=== PATIENT | male | born 1970 | race Caucasian/White ===

== ENCOUNTER 2019-10-19 08:04 | Emergency (ER) | payer OTHER, SELFPAY ==
--- NOTE | ~2019-10-19 | XR_ITS ---
EXAMINATION: XR chest 2V DATE: 10/19/2019 08:42 INDICATION: Difficulty breathing. Right lung pain. Smoker. TECHNIQUE: frontal and lateral views of the chest were obtained. COMPARISON: Chest radiograph dated 12/28/2009 FINDINGS: Hyperexpansion of lungs with flattening of the diaphragm suggestive but not diagnostic of COPD. Focal airspace opacity medial right apex. Remainder of the lungs are clear with no pulmonary edema, pleura l effusion or pneumothorax. The cardiomediastinal silhouette is normal. Visualized bones and soft tis sues are unremarkable. IMPRESSION: 1. Focal airspace opacity at the medial right apex could represent pneumonia, malignancy or atelectas is. Correlate clinically and consider chest CT for further evaluation. 2. Hyperexpansion of the lungs suggestive but not diagnostic of COPD. Reviewed, dictated and finalized at location A. MAKER IMPRESSION: 1. Focal airspace opacity at the medial right apex could represent pneumonia, m alignancy or atelectasis. Correlate clinically and consider chest CT for furthe r evaluation. 2. Hyperexpansion of the lungs suggestive but not diagnostic of COPD.
[2019-10-19 08:17] VITALS: BP 148/74; PULSE 84; RESP 16; TEMP 36.8; O2SAT 97
--- NOTE | 2019-10-19 08:19 | ED.GENADULT ---
HPI - General Adult General Chief complaint: Upper Respiratory Infection Stated complaint: Chest pain/Muscle fatigue Time Seen by Provider: 10/19/19 08:19 Source: patient Mode of arrival: ambulatory Limitations: no limitations History of Present Illness HPI narrative: 49-year-old male [facility] of cough and shortness of breath. Patient states that last weekend he was working with some paint thinner and was not really in a well ventilated area and denies using any type of respirator at that time. Patient states that on Monday he noticed some back pain and some pain with inspiration. Patient states that his symptoms got increasingly worse until he started having some midsternal chest pain, shortness of breath, and pain with inspiration. Denies any fevers or cold symptoms. Denies any sore throat, abdominal pain, nausea, vomiting or diarrhea. Patient states that he does smoke a pack a day. Patient states that he did get a flu shot this year. Patient states that his symptoms are getting better but he wanted to come in and get checked out today. Patient states he does feel little short of breath still and continues to have a little bit of a cough but no chest pain at this time. Related Data Home Medications Medication Instructions Recorded Confirmed lisdexamfetamine [Vyvanse] mg 10/19/19 lisdexamfetamine [Vyvanse] mg 10/19/19 sildenafil 10/19/19 Allergies Allergy/AdvReac Type Severity Reaction Status Date / Time erythromycin base Allergy Unknown Verified 03/23/19 10:20 Review of Systems Review of Systems: Narrative: CONSTITUTIONAL: Denies fever, chills, or sweats. EYES: Denies visual changes, redness, or discharge. ENT: Denies rhinorrhea, congestion, sore throat, or otalgia. CARDIOVASCULAR: Denies chest pain, palpitations, or edema. RESPIRATORY: Positive cough with dyspnea. GASTROINTESTINAL: Denies abdominal pain, nausea, vomiting, or diarrhea. GENITOURINARY: Denies dysuria or hematuria. SKIN: Denies rash or itching. MUSCULOSKELETAL: Denies back pain, joint pain, or myalgia. NEUROLOGIC: Denies headache, numbness, or weakness. PSYCHIATRIC: Denies anxiety or depression. [facility] Past Medical History Medical History (Updated 10/19/19 @ 08:54 by EHSAN Castillo) ADD (attention deficit disorder) Anxiety Hypercholesterolemia Kidney stones Liver disease Pneumonia Surgical History Surgical History (Updated 10/19/19 @ 08:36 by EHSAN Castillo) History of tonsillectomy Social History Social History (Updated 10/19/19 @ 08:35 by EHSAN Castillo) Smoking packs per day: 1 Smoking cigarettes per day: 20.0 Years smoked: 20 Smoking pack-years: 20.00 Comments At the time of my signature I agree with nursing past medical history, surgical, social, and family history. There is no relevant family history pertinent to the presenting complaint. Exam Narrative: Exam Narrative: GENERAL: Well-appearing, well-nourished, and in no acute distress. HEAD: Normocephalic, atraumatic. No tenderness noted to frontal and maxillary sinuses on palpation. EYES: PERRLA and EOMI. ENT: Nares clear, no rhinorrhea or epistaxis. Mucous membranes moist. Posterior pharynx with no erythema, tonsillectomy, exudates or lesions present. Bilateral TMs are clear no erythema or foreign bodies in the canal. NECK: Supple. No lymphadenopathy CHEST: Patient does have some decreased lung sounds noted to bilateral lower lobes however the upper lobes are clear on auscultation.. No respiratory distress. HEART: Regular rate and rhythm. No murmur heard. Normal peripheral pulses. ABDOMEN: Soft, nontender, nondistended, normal active bowel sounds. EXTREMITIES: Normal range of motion. No edema. Clubbing noted to fingers. SKIN: Warm, dry, no rash. NEURO: No focal deficits. Alert and oriented x3. Course Reevaluation(s) Reevaluation #1: Reevaluated patient after his x-ray was completed. Dinora
== END 2019-10-19 09:07 | disposition home or self-care (01) ==
PROVIDERS: Emergency Provider Nurse Practitioner Family; PCP Family Medicine Adolescent Medicine
DX: J06.9 Acute upper respiratory infection, unspecified (principal); R06.02 Shortness of breath; F17.210 Nicotine dependence, cigarettes, uncomplicated; F90.0 Attention-deficit hyperactivity disorder, predominantly inattentive type; E78.00 Pure hypercholesterolemia, unspecified
CPT/HCPCS: 71046; 99213; G0463

== ENCOUNTER 2019-10-25 15:50 | Outpatient (CLI) | payer OTHER, SELFPAY ==
--- NOTE | ~2019-10-25 | CT_ITS ---
EXAMINATION: CT chest wo con DATE: 10/25/2019 16:15 INDICATION: Focal consolidation right upper lobe seen on chest x-ray. TECHNIQUE: Computed tomography (CT) of the chest was performed without intravenous contrast. The dose -length product was 206.03 mGy-cm. Automated exposure control and iterative reconstruction technique were employed. COMPARISON: Chest x-ray dated 10/19/2019 FINDINGS: There is an enlarged precarinal lymph node measuring 10 mm short axis. There are additional smaller mediastinal lymph nodes. No significant pleural or pericardial effusion. Heart size is abhijit l. There is abnormal focal right peritracheal soft tissue extending into the mediastinum. There are a ir bronchograms and associated calcifications. There are shotty axillary lymph nodes. There is emphys nick. The right upper lobe soft tissue measures 5.3 cm craniocaudal x3.3 cm transverse x2.3 cm AP. The soft tissue abuts the esophagus. No pneumothorax. Nonobstructing right renal stones. Otherwise, the upper abdomen is unremarkable. IMPRESSION: 1. Abnormal right upper lobe paramediastinal soft tissue with possible invasion of the mediastinum. T here are peripheral air bronchograms and a few associated punctate calcifications. This may represent infectious/inflammatory process although malignancy is not excluded. 2: Mediastinal lymphadenopathy which may be reactive or metastatic disease. 3: Nonobstructing right nephrolithiasis. Reviewed, dictated and finalized at location A. ON SEWING MACHINE OPERATOR IMPRESSION: 1. Abnormal right upper lobe paramediastinal soft tissue with possible invasion of the mediastinum. There are peripheral air bronchograms and a few associated punctate calcifications. This may represent infectious/inflammatory process al though malignancy is not excluded. 2: Mediastinal lymphadenopathy which may be reactive or metastatic disease. 3: Nonobstructing right nephrolithiasis.
== END 2019-10-25 15:51 | disposition home or self-care (01) ==
LOC: ANHIMG 15:53
PROVIDERS: PCP Family Medicine Adolescent Medicine; Visit Provider Family Medicine Adolescent Medicine
DX: R91.8 Other nonspecific abnormal finding of lung field (principal); R59.0 Localized enlarged lymph nodes; N20.0 Calculus of kidney
CPT/HCPCS: 71250

== ENCOUNTER 2019-11-12 06:54 | Outpatient (CLI) | payer OTHER, SELFPAY ==
--- NOTE | ~2019-11-12 | XR_ITS ---
EXAMINATION: XR chest 2V 11/12/2019 07:21 INDICATION: Pneumonia. PROCEDURE: 2 view chest COMPARISON: Comparison to multiple prior studies sequentially, with oldest reviewed study dated 10/14. FINDINGS: The lungs are clear. The cardiomediastinal silhouette is within normal limits. There are no pleural effusions. There is no pneumothorax suspected. IMPRESSION: 1: NO ACUTE CARDIOPULMONARY DISEASE. Reviewed, dictated and finalized at location A.
== END 2019-11-12 06:55 | disposition home or self-care (01) ==
PROVIDERS: PCP Family Medicine Adolescent Medicine; Visit Provider Family Medicine Adolescent Medicine
DX: J18.9 Pneumonia, unspecified organism (principal)
CPT/HCPCS: 71046

== ENCOUNTER → 2020-08-18 09:37 | Outpatient (CLI) | payer OTHER, SELFPAY ==
--- NOTE | ~2020-08-18 | XR_ITS ---
EXAMINATION: XR knee RT min 4V DATE: 08/18/2020 09:56 INDICATION: Right knee pain and swelling. TECHNIQUE: 4 views of right knee were obtained. COMPARISON: Right knee radiographs 10/26/2010 FINDINGS: Bone alignment is normal. No fracture. There is mild osteoarthritis of patellofemoral madelaine rtment characterized by tiny marginal osteophytes. No knee joint effusion. IMPRESSION: 1. Mild right knee osteoarthritis. Reviewed, dictated and finalized at location A. R MAKER
== END ==
PROVIDERS: PCP Family Medicine Adolescent Medicine; Visit Provider Family Medicine Adolescent Medicine
DX: M17.11 Unilateral primary osteoarthritis, right knee (principal)
CPT/HCPCS: 73564

== ENCOUNTER → 2020-08-25 14:57 | Outpatient (CLI) | payer OTHER, SELFPAY ==
--- NOTE | ~2020-08-25 | MR_ITS ---
EXAMINATION: MR knee RT wo con DATE: 08/25/2020 15:37 INDICATION: Right knee pain. TECHNIQUE: Magnetic resonance imaging (MRI) of the right knee was performed without intravenous contr ast. Sequences included axial PD-weighted FS FSE, coronal PD-weighted FSE and PD-weighted FS FSE, sag ittal PD-weighted FSE, and sagittal T2-weighted FS FSE. COMPARISON: Right knee radiographs 08/18/2020, MRI 01/07/2011 FINDINGS: Medial compartment: There is a complex tear of body and posterior horn of medial meniscus. There is shallow partial-thick ness cartilage loss of tibial condyle anteromedially with mild subchondral edema-like marrow signal i ntensity. There is shallow partial-thickness cartilage loss of femoral condyle anteromedially with mi ld subchondral edema-like marrow signal intensity. Lateral compartment: The lateral meniscus is normal. The lateral compartment cartilage is normal. Patellofemoral compartment: There is shallow partial-thickness cartilage loss of patellar lateral facet. There is cartilage surfa ce irregularity of trochlea. Ligaments and tendons: The anterior and posterior cruciate ligament are normal. Medial collateral ligament and lateral colla teral ligament complex are intact. There is mild patellar tendinopathy. Fluid: There is a small knee joint effusion. There is a 2.9 x 1.2 x 1.0 cm multiloculated ganglion cyst cristal g the popliteus tendon. IMPRESSION: 1. Mild chondrosis of medial and patellofemoral compartments. 2. Tear of medial meniscus. 3. Ganglion cyst along the popliteus tendon. 4. Small knee joint effusion. Reviewed, dictated and finalized at location A. CONTROLLER
== END ==
PROVIDERS: PCP Family Medicine Adolescent Medicine; Visit Provider Family Medicine Adolescent Medicine
DX: M25.461 Effusion, right knee (principal); S83.241A Other tear of medial meniscus, current injury, right knee, initial encounter; X58.XXXA Exposure to other specified factors, initial encounter
CPT/HCPCS: 73721

== ENCOUNTER 2021-05-12 19:09 | Emergency (ER) | payer OTHER, SELFPAY ==
--- NOTE | ~2021-05-12 | XR_ITS ---
EXAMINATION: XR chest 2V 05/12/2021 19:45 INDICATION: Chest congestion. Dyspnea PROCEDURE: 2 view chest COMPARISON: 08/05/2000 FINDINGS: The lungs are clear. The cardiomediastinal silhouette is within normal limits. There are no pleural effusions. There is no pneumothorax suspected. IMPRESSION: 1: NO ACUTE CARDIOPULMONARY DISEASE. Reviewed, dictated and finalized at location A.
--- NOTE | 2021-05-12 20:06 | ED.URI ---
HPI - URI/Sore Throat General Chief Complaint: Upper Respiratory Infection Stated Complaint: chest pain Time Seen by Provider: 05/12/21 20:07 Source: patient, RN notes reviewed and old records reviewed Mode of arrival: ambulatory Limitations: no limitations History of Present Illness HPI Narrative: 50 year old male who presents to [facility] care with complaints of intermittent chest pain today since 1100. Patient denies any chest pain at the present time, states he just got off work prior to coming to clinic. Patient states that he had COVID in April and he had pneumonia at that time and had been doing pretty good. Patient denies any acute cough or any shortness of breath, states doesn't hurt to take a deep breath at this time.Patient continues to smoke 1 pack of cigarettes daily, has smoked for 20 years. He states when he had the pain in his chest it was in his sternal area, didn't go anywhere else, was not nauseated or short of breath, he denies any recent fevers, chill or sweats or any sinus congestion or drainage. MD elicited complaint: cough and other (chest) Related Data Home Medications Medication Instructions Recorded Confirmed alprazolam 05/12/21 dextroamphetamine-amphetamine 05/12/21 Allergies Allergy/AdvReac Type Severity Reaction Status Date / Time erythromycin base Allergy Unknown Other Verified 05/12/21 19:15 Review of Systems Review of Systems: CONSTITUTIONAL: Denies fever, chills, or sweats. EYES: Denies visual changes, redness, or discharge. ENT: Denies rhinorrhea, congestion, sore throat, or otalgia. CARDIOVASCULAR: Denies chest pain, palpitations, or edema. RESPIRATORY: Denies cough or dyspnea. GASTROINTESTINAL: Denies abdominal pain, nausea, vomiting, or diarrhea. GENITOURINARY: Denies dysuria or hematuria. SKIN: Denies rash or itching. MUSCULOSKELETAL: Denies back pain, joint pain, or myalgia. NEUROLOGIC: Denies headache, numbness, or weakness. PSYCHIATRIC: Positive anxiety or depression. All systems reviewed & are unremarkable except as noted in HPI and below PMFSH Past Medical History Medical History (Updated 05/13/21 @ 00:01 by Chester Mckee) ADD (attention deficit disorder) Anxiety Hypercholesterolemia Kidney stones Liver disease Pneumonia Surgical History Surgical History (Updated 10/19/19 @ 08:36 by EHSAN Castillo) History of tonsillectomy Social History Social History (Updated 10/19/19 @ 08:35 by EHSAN Castillo) Smoking packs per day: 1 Smoking cigarettes per day: 20.0 Years smoked: 20 Smoking pack-years: 20.00 Exam Narrative: GENERAL: Well-appearing, well-nourished, and in no acute distress, no pain at this time HEAD: Normocephalic, atraumatic. EYES: PERRLA and EOMI. ENT: Nares clear, no rhinorrhea or epistaxis. Mucous membranes moist.TM's abhijit with good light reflex, throat pink with no lesions or exudates, tonsils absent NECK: Supple.no lymphadenopathy CHEST: Clear decreased to auscultation. No respiratory distress.SAO2 99% on room air HEART: Regular rate and rhythm. No murmur heard. Normal peripheral pulses. ABDOMEN: Soft, nontender, nondistended, normal active bowel sounds. EXTREMITIES: Normal range of motion. No edema. SKIN: Warm, dry, no rash. NEURO: No focal deficits. Alert and oriented x3. Course Vital Signs Vital signs: Vital Signs Temperature 36.4 C L 05/12/21 20:35 Pulse Rate 85 05/12/21 20:35 Respiratory Rate 16 05/12/21 20:35 Blood Pressure 133/73 05/12/21 20:35 Pulse Oximetry 99 05/12/21 20:35 Temperature 36.4 C L 05/12/21 20:35 Pulse Rate 85 05/12/21 20:35 Respiratory Rate 16 05/12/21 20:35 Blood Pressure 133/73 05/12/21 20:35 Pulse Oximetry 99 05/12/21 20:35 MDM - URI/Sore Throat Differential Diagnosis Differential diagnosis: Likely upper respiratory infection, bronchitis and other (Costochondritis, atypical chest pain, muscle strain) Medical Records Attestation: I reviewed the p
[2021-05-12 20:35] VITALS: BP 133/73; PULSE 85; RESP 16; TEMP 36.4; O2SAT 99
== END 2021-05-12 20:55 | disposition home or self-care (01) ==
PROVIDERS: Emergency Provider Registered Nurse; PCP Family Medicine Adolescent Medicine
DX: M94.0 Chondrocostal junction syndrome [Tietze] (principal); F41.9 Anxiety disorder, unspecified; F17.210 Nicotine dependence, cigarettes, uncomplicated
CPT/HCPCS: 71046; 99213; G0463

== ENCOUNTER 2022-12-17 08:46 | Emergency (ER) | payer OTHER, SELFPAY ==
--- NOTE | ~2022-12-17 | XR_ITS ---
EXAMINATION: XR hand LT min 3V INDICATION: Left hand pain TECHNIQUE: Three views of the left hand are obtained. COMPARISON: None available FINDINGS: There is no fracture. The soft tissues are unremarkable. There is mild osteoarthritis of mu ltiple interphalangeal joints. IMPRESSION: 1. No acute osseous abnormality. Reviewed, dictated and finalized at location A.
[2022-12-17 09:02] VITALS: BP 145/84; PULSE 92; RESP 12; TEMP 36.4; O2SAT 97
--- NOTE | 2022-12-17 09:16 | ED.UPPEXIN ---
HPI - Extremity Injury (Upper) General Chief Complaint: Extremity Injury, Upper Stated Complaint: Left Hand Paiin Source: patient and RN notes reviewed History of Present Illness HPI narrative: 32-year-old male presents to urgent care with complaints left thumb pain. Patient states 8 days ago he was golfing when he felt a pain and pop in his left thumb. 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 Patient states he feels like his thumb was dislocated. Denies any numbness or tingling. patient denies any injury to this joint in the past. Patient takes ibuprofen when needed. Some parts of this dictation were generated by voice recognition software and may contain typographical and/or grammatical inaccuracies. Related Data Allergies Allergy/AdvReac Type Severity Reaction Status Date / Time erythromycin base Allergy Unknown Other Verified 12/17/22 09:19 sertraline AdvReac Severe Depression Verified 12/17/22 09:19 Review of Systems Review of Systems: Pertinent positives and pertinent negatives per HPI. [facility] Past Medical History Medical History (Updated 12/17/22 @ 09:47 by Mar Mary APRN) ADD (attention deficit disorder) Anxiety Hypercholesterolemia Kidney stones Liver disease Pneumonia Surgical History Surgical History (Updated 11/18/22 @ 06:53 by Jake Nelson MD) History of tonsillectomy Hx of right knee surgery x3 Family History Family History Grandparent Acute myocardial infarction Other Breast cancer Mother Diabetes mellitus Hypertension Father Hypertension Social History Social History Smoking packs per day: 1 Smoking cigarettes per day: 20.0 Years smoked: 20 Smoking pack-years: 20.00 Smoking status: Current every day smoker Tobacco type: cigarettes Second hand tobacco smoke exposure: Yes Drinks per week: 6 Substance use: never Substance use type: does not use Living arrangements: alone Occupation/Education: occupation Gender identity (if verbalized by the patient): Male Sexual Orientation (if Verbalized by the Patient): Straight or Heterosexual Spiritual care concerns: No Agree to blood products: Yes Comments At the time of my signature, I reviewed and agree with the nursing past medical, surgical, social, and family history. There is no relevant family history pertinent to the patient complaint. Exam Narrative: GENERAL: This is a well-nourished, well-developed patient, in no apparent distress. HEAD: normocephalic, atraumatic. EYES: Sclera clear/white. Vision is grossly intact. EARS: External ears normal, auditory canals clear and without drainage. Hearing grossly intact. NOSE: External nose normal with no obvious nasal discharge, nares without redness, no rhinorrhea. THROAT: Mucous membranes moist, posterior pharynx clear. NECK: Neck supple, non-tender without lymphadenopathy, masses or thyromegaly. CARDIOVASCULAR: Regular rate RESPIRATORY: No respiratory distress SKIN: warm, intact with no suspicious lesions or rash, good texture and turgor. NEURO: awake, alert, and oriented to person, place and time. There were no obvious focal neurologic abnormalities. EXTREMITIES: Joint laxity and slight swelling noted in left thumb's MCP joint. Course Course Level of Care: Express Care Visit Vital Signs Vital signs: Vital Signs Temperature 97.6 F 12/17/22 09:02 Pulse Rate 92 12/17/22 09:02 Respiratory Rate 12 12/17/22 09:02 Blood Pressure 145/84 H 12/17/22 09:02 Pulse Oximetry 97 12/17/22 09:02 Oxygen Delivery Room Air 12/17/22 09:02 Temperature 97.6 F 12/17/22 09:02 Pulse Rate 92 12/17/22 09:02 Respiratory Rate 12 12/17/22 09:02 Blood Pressure 145/84 H 12/17/22 09:02 Pulse Oximetry 97 12/17/22 09:02 Oxygen Delivery Room Air 12/17/22 09:02
== END 2022-12-17 09:58 | disposition home or self-care (01) ==
PROVIDERS: Emergency Provider Nurse Practitioner Family; PCP Family Medicine Adolescent Medicine
DX: S63.642A Sprain of metacarpophalangeal joint of left thumb, initial encounter (principal); F17.210 Nicotine dependence, cigarettes, uncomplicated; X50.0XXA Overexertion from strenuous movement or load, initial encounter; Y93.53 Activity, golf
CPT/HCPCS: 73130; 99213; G0463

== ENCOUNTER 2022-12-22 02:22 | Day surgery (SDC) | payer OTHER, SELFPAY ==
[2022-12-21 08:19] VITALS: BMI 22.1
--- NOTE | 2022-12-21 08:28 | SUR.PREOP ---
Report to the Outpatient Waiting Room, entrance under the green pavilion located off [facility], at time 0600 on date 12/22/22. Planned Procedure Time: 0730. Time changes happen often and if your time is changed the preop area will call you the afternoon before. - You and your visitor will be asked to self-screen and do not enter if you have any COVID symptoms. - A mask is optional within the hospital at this time. Patients may have clear liquids (water, carbonated beverages, clear teas, apple juice) until 3 hours prior to surgery with a maximum of 20 ounces. - No food from midnight until time of surgery - Infants may have breast milk until 4 hours before surgery, formula 6 hours prior to surgery. - Children will be allowed to drink immediately following surgery. If applicable, please bring a bottle or sippy cup to assist with drinking. Juice, water, soda, and popsicles are readily available. For infants on formula, please bring formula the day of surgery. Pacifiers are allowed. Take the following medications with a SIP of water the morning of surgery: ___holding morning meds per patient___ DO NOT STOP ANY OF YOUR OTHER PRESCRIPTION MEDICATIONS PRIOR TO SURGERY ?EXCEPT THE FOLLOWING Medications to discontinue per physician Date to take last dose Please no make-up, nail frisian, hairspray, perfume, deodorant, or body powder the day of surgery. No jewelry (including any body piercings) or valuables the day of surgery, leave them at home. Please take a shower or bath the night before, or the morning of, surgery with an antibacterial soap. Wear comfortable, loose fitting clothing. Children are encouraged to wear pajamas. - Jewelry must be removed prior to entering the operating room. Rings and piercings that are not removed may be cut off. - The hospital will not accept responsibility for valuables. - Please leave all valuables, including medications, at home the day of surgery. If you are going home after surgery, a licensed driver starting gate must drive you home. - NO public transportation without another adult if you receive anesthesia. - We recommend that an adult stay with you for 24 hours following discharge. - We also recommend that you do not drive, make important decision, drink alcoholic beverages, or take any drugs that were not prescribed by your health care provider for at least 24 hours after your discharge time. For Pediatric surgeries, we recommend two adults accompany the child home. Follow any additional instructions given to you from your surgeon. If you or anyone in your household have experienced Covid symptoms in the past week, please notify your surgeon or the nurse liaison at the phone number below for possible testing. Telephone instructions given to __patient__and asked if any additional questions and then verbalized understanding. Patient advised to call surgeon office or pre surgery nurse liaison [phone] if any additional questions.
--- NOTE | ~2022-12-22 | XR_ITS ---
EXAMINATION: XR surgery orthopedic DATE: 12/22/2022 10:03 INDICATION: Left hand first metacarpophalangeal joint repair. TECHNIQUE: 2 fluoroscopic images of the thumb of the left hand were obtained during procedure perform ed by Dr. Magallanes. Radiologist was not present for the imaging or procedure. The amount of fluoroscopy time used during this procedure was 0.9 minutes. COMPARISON: 12/17/2022 FINDINGS: Image demonstrates what appear to be placement of a suture anchor tracks at the base of the first pro ximal phalanx and adjacent head of the first metacarpal likely for ligament reconstruction. Alignment appears essentially anatomic with reduction of the prior mild palmar/ulnar subluxation of the metaca rpophalangeal joint. No fractures identified. Joint spaces appear normal. IMPRESSION: 1. Fluoroscopy utilized during likely ligamentous reconstruction at the left first metacarpophalangea l joint. See procedure note for further detail. Reviewed, dictated and finalized at location A. IMPRESSION: 1. Fluoroscopy utilized during likely ligamentous reconstruction at the left fi rst metacarpophalangeal joint. See procedure note for further detail.
--- NOTE | 2022-12-22 07:23 | WPDHPUPDATE1 ---
History and Physical Update Update Date/Time: 12/22/22 07:23 History and Physical has been reviewed, including an updated exam of the patient. There are NO changes in the patient's condition. Risks, benefits, and alternatives have been discussed and questions answered. Patient agrees to proceed with procedure. All references to the physical findings reported in the H&P should indicate radial MPJ laxity and slight adduction of the proximal phalanx at rest.
[2022-12-22 07:48] VITALS: BP 125/85; PULSE 73; RESP 18; TEMP 36.2; O2SAT 100
--- NOTE | 2022-12-22 07:59 | ECG_ITS ---
Measurements Intervals [place] Rate: 70 P: 59 WI: 142 QRS: 73 QRSD: 101 T: 66 QT: 383 QTc: 414 Interpretive Statements SINUS RHYTHM NO PREVIOUS ECG AVAILABLE FOR COMPARISON Electronically Signed On 12-22-2022 18:28:06 CDT by Arnel Ruiz M.D.
--- NOTE | 2022-12-22 07:59 | WPDANESEPPF ---
Anes - Initial Pre Proc Eval Procedure: Operation Date: 12/22/22 07:30 Proposed Procedures p Repair Left First Metacarpophalangeal Joint Radial Collateral Ligament with Arthrex Internal Brace - Neymar Magallanes MD Date/Time: 12/22/22 07:59 Surgeon: Neymar Magallanes MD Pre Op Diagnosis: rupture radial collateral ligament left 1st joint Patient Data Age: 52 Gender: M Height: 1.75 m Weight: 66.4 kg Last Vital Signs Temp 36.2 C L 12/22/22 07:48 Pulse 73 12/22/22 07:48 Resp 18 12/22/22 07:48 BP 125/85 12/22/22 07:48 Pulse Ox 100 12/22/22 07:48 O2 Del Method Room Air 12/22/22 07:48 Allergies Allergy/AdvReac Type Severity Reaction Status Date / Time erythromycin base Allergy Unknown Other Verified 12/17/22 09:19 sertraline AdvReac Severe Depression Verified 12/17/22 09:19 Home Medications Medication Instructions Recorded Confirmed Type alprazolam 2 mg tablet 2 mg PO TID #90 tabs 11/25/22 12/22/22 Rx dextroamphetamine-amphetamine 30 30 mg PO BID #60 tabs 12/09/22 12/22/22 Rx mg tablet quetiapine 50 mg tablet 50 mg PO QHS #30 tabs 12/09/22 12/22/22 Rx Patient hx anesthesia problems: none Family hx anesthesia problems: none Results Review: All pre-operative results and documents have been reviewed as part of the pre-operative evaluation. [facility] Past Medical History Medical History ADD (attention deficit disorder) Anxiety Hypercholesterolemia Kidney stones Liver disease Pneumonia Surgical History Surgical History History of tonsillectomy Hx of right knee surgery x3 Family History Family History Grandparent Acute myocardial infarction Other Breast cancer Mother Diabetes mellitus Hypertension Father Hypertension Social History Social History Smoking packs per day: 1 Smoking cigarettes per day: 20.0 Years smoked: 30 Smoking pack-years: 30.00 Smoking status: Current every day smoker Tobacco type: cigarettes Second hand tobacco smoke exposure: Yes Drinks per week: 3 Substance use: never Substance use type: marijuana Other substance usage details: marijuana at night for sleep Living arrangements: alone Occupation/Education: occupation Gender identity (if verbalized by the patient): Male Sexual Orientation (if Verbalized by the Patient): Straight or Heterosexual Spiritual care concerns: No Agree to blood products: Yes Anes - Eval Final PreProcedure Day of Procedure 12/22/22 07:59 Patient weight: normal Heart: regular rate and rhythm Lungs: clear to auscultation Airway: Mallampati scale class II Neurological: alert and oriented Last oral intake: >/= 8 hours ASA classification: II Emergent: no Anesthetic plan: proceed Anesthesia type and monitoring: general LMA and standard monitoring Results Review: All pre-operative results and documents have been reviewed as part of the pre-operative evaluation. Informed Consent: The patient's anesthetic plan and its attendant risks and benefits were discussed with the patient/family/POA. Questions were solicited and answers provided to the satisfaction of the patient/family/POA.
[2022-12-22] MEDS: LACTATED RINGERS 1,000 ML 30 ML IV CONT (08:12)
[2022-12-22] MEDS: LIDO 1%/EPINEPHRINE 1:100,000 50 ML VIAL 7 ML INFILTRATE (08:51)
[2022-12-22] MEDS: BUPivacaine HCL 0.25% PF 30 ML VIAL 6 ML INFILTRATE (08:52)
[2022-12-22 10:13] VITALS: BP 120/81; PULSE 87; RESP 22; TEMP 36.6; O2SAT 99
--- NOTE | 2022-12-22 10:22 | P.OP_ITS ---
Procedure Note - Detailed Date of Procedure 12/22/22 Pre-op Diagnosis rupture radial collateral ligament left 1st joint Post-op Diagnosis Same Procedure Performed Primary repair of the radial collateral ligament of the left 1st metacarpop halangeal joint with Arthrex internal and brace Surgeon Neymar Magallanes MD Anesthesia General Findings Rupture of the insertion of the radial collateral ligament of the left 1st metacarpophalangeal joint Description of Procedure The patient was in a splint in the holding area. The nearby area was marked for correct site. The patient was then taken to the operating room where he was placed supine on the operating table. He was given general anesthesia. The left upper extremity was prepped draped in usual fashion. Time-out was held and confirmed with everyone present. The site was marked for the incision and locally infiltrated with 1% lidocaine with epinephrine. This was shortly followed by several cc of 0.25% Sensorcaine. Extremity was exsanguinated with an Esmarch and the tourniquet inflated to 250 mmHg. The incision was made as marked through the skin revealing a couple of cutaneous nerves that were protected throughout the procedure. The abductor fascia was incised parallel to the extensor pollicis brevis. This was retracted palmar word. The joint site was carefully examined and the distal ends of the 2 collateral ligaments were identified proximally displaced. The ruptured had occurred at the insertion. Joint was visualized. There was no significant arthritis. The radial base of the distal phalanx was exposed and Arthrex internal brace system was utilized for repair. Drill site was identified with images taken after placement of the guidewire. Site was acceptable and the Arthrex drill with guide was brought and hole made for swivel lock. Construct with suture tape and suture was placed at that point. The collateral ligament was repaired with the supplied FiberWire directing the end of that ligament to drill site. This was tied down. The site for the proximal placement of the suture tape was drilled. Site was confirmed placement guidewire using FluoroScan. SwiveLock fenestration was made. The swiveLock placed over the suture tape and inset. The metacarpophalangeal joint was flexed approximately 30? and well Ulnarly abducted as was set. This produced a very stable construct with what appeared to be useful passive range of motion. Additional sutures were placed to reattach the accessory collateral ligament. Abductor aponeurosis was repaired. Tourniquet was released. The skin was closed with the running 5 0 nylon. Dorsal 3 in Orthoplast splint test crossing wrist was applied patient was discharged from the operating room stable condition. He is being discharged home with a prescription for hydrocodone 10 Estimated Blood Loss 10 Tourniquet Time 90 Drains No Packing No Pathology None sent Complications No immediate complications Condition Stable Disposition PACU
[2022-12-22 10:25] VITALS: BP 100/60; PULSE 74; RESP 20; O2SAT 98
[2022-12-22 10:40] VITALS: BP 95/61; PULSE 77; RESP 14; O2SAT 98
[2022-12-22 10:50] VITALS: BP 128/76; PULSE 67; RESP 16
[2022-12-22 11:20] VITALS: BP 147/91; PULSE 61; RESP 16
--- NOTE | 2022-12-22 11:25 | SUR.PHASEII ---
this nurse called dr glez to inform her about pt blood loss and plan to order a CBC and continue to monitor.
--- NOTE | 2022-12-22 11:51 | SUR.PHASEII ---
pt meets discharge criteria and is waiting for his ride
--- NOTE | 2022-12-22 11:52 | SUR.PHASEII ---
pt said his insurance will not pay for his pain meds and he is very angry and threw his discharge papers on the floor
== END 2022-12-22 12:04 | disposition home or self-care (01) ==
PROVIDERS: PCP Family Medicine Adolescent Medicine; Visit Provider Plastic Surgery
PROC: (CPT 26540; principal; 2022-12-22 07:30)
DX: S63.641A Sprain of metacarpophalangeal joint of right thumb, initial encounter (principal); X50.0XXA Overexertion from strenuous movement or load, initial encounter; Y93.53 Activity, golf; F98.8 Other specified behavioral and emotional disorders with onset usually occurring in childhood and adolescence; F41.9 Anxiety disorder, unspecified; F17.210 Nicotine dependence, cigarettes, uncomplicated; F12.90 Cannabis use, unspecified, uncomplicated
CPT/HCPCS: 26540; 93005; 99199; A9270; C1713; J1100; J1644; J2250; J2405; J2704; J3010; J3370; J7030; J7120

== ENCOUNTER 2023-02-17 08:30 | Outpatient (RCR) | payer OTHER, SELFPAY ==
--- NOTE | 2023-01-12 10:48 | OTOPEVAL1 ---
Assessment and note entered by Nils Olson, OTR/L, CHT Evaluation Information Assessment Status Evaluation Diagnosis s/p radial collateral ligament repair, 1st MCP joint, left hand Subjective Information Onset of injury 12/09/22 Surgical repair 12/22/22 Patient reports having some pain initially, but now just incisional pain . He presents in the orthoplast splint and sherine wrap provided post surgery. 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 Has been off work with orders to not use his thumb. At his last doctor visit there was concern for laxity at the repair with slow wound healing. He is right hand dominant. His next follow up with Dr. Magallanes is 01/20/23. Outside of the splint the patient tends to move his hand/thumb around a lot. Needs reminders to slow down and to not over do it. Reported Pain Level Pain Score 0: Self Report Assessment OT Clinical Summary Patient referred to outpatient hand therapy 3 weeks following repair of the left radial collateral ligament of the 1st MCP joint. Today a custom, hand-based thumb spica brace was fabricated and fitted to the patient. This places the thumb in a functional position and he is able to oppose to digits II-III, and freely move the IP . Educated on beginning gentle ROM - starting with serial opposition outside of the brace. The patient reports that he has orders to not move the hand and that he isn't going to be performing the ROM HEP until he follows up with the doctor despite my recommendations. Will plan to continue to see the patient for ROM and progression to strengthening when indicated to facilitate optimal functional use of the left thumb. Plan of Care Interventions Therapeutic Exercise,Manual Therapy,Therapeutic Activities,Hot Pack/Cold Pack,Check Out for Orthotic/Pr,Paraffin OT Services Indicated Yes Treatment Frequency and 0-1x/week for 5 weeks Duration These treatments will address the objective and functional deficits as defined above. The patient will be advanced safely and appropriately in order for the patient to progress towards his/her prior level of function. Additional exercises will be introduced and as well as a comprehensive home exercise program upon discharge, if needed, ?to ensure carryover of functional gains achieved in the cli
--- NOTE | 2023-02-17 09:01 | OTOPDC ---
Assessment and note entered by Nils Olson, OTR/L, CHT Evaluation Information Assessment Status Discharge Diagnosis s/p radial collateral ligament repair, 1st MCP joint, left hand Subjective Information Onset of injury 12/09/22 Surgical repair 12/22/22 Patient is 8 weeks post op today. Plan to discharge the orthotic except for heavy hand use. Advised that he should wear the orthotic for another 6 weeks for anything strenuous or when swinging a golf club. He reports no functional limitations at this time. Left occupational health nurse supervisor and pinch strengths are measuring within functional limits: - occupational health nurse supervisor 93 lbs. - lateral pinch 11 lbs. - palmar pinch 16 lbs. Did not issue a occupational health nurse supervisor/pinch strengthening HEP, as he tends to over-do it and his strength measurements are WFL. Reported Pain Level Pain Score 0: Self Report Additional Pain Score Comments Reporting no pain, just tight . Assessment OT Clinical Summary Patient referred to outpatient hand therapy following repair of the left radial collateral ligament of the 1st MCP joint. Today he is 8 weeks post op. He has been cleared to remove the orthotic, except for any heavy tasks or sustained pinch tasks. Discussed having the orthotic with him at work to use on an as needed basis. Recommending he wears the orthotic to play golf for another 6 weeks. ROM and strength of the left thumb/hand is WFL. No further skilled OT indicated . Discharging with patient independent with all materials. Plan of Care OT Services Indicated No
== END 2023-02-17 10:51 | disposition home or self-care (01) ==
LOC: ANHOT 08:30
PROVIDERS: PCP Family Medicine Adolescent Medicine; Visit Provider Plastic Surgery
DX: Z48.89 Encounter for other specified surgical aftercare (principal)
CPT/HCPCS: 97110; 97165; L3913

== ENCOUNTER 2023-03-21 11:40 | Emergency (ER) | payer OTHER, SELFPAY ==
[2023-03-21 11:52] VITALS: BP 160/74; PULSE 66; RESP 16; TEMP 36.8; O2SAT 98
[2023-03-21 11:53] VITALS: BP 160/74; PULSE 66; RESP 16; TEMP 36.8; O2SAT 98
--- NOTE | 2023-03-21 11:58 | ED.ABDPAIN ---
HPI - Abdominal Pain General Chief Complaint: Abdominal Pain Stated Complaint: right side abdonimal pain Time Seen by Provider: 03/21/23 11:41 Source: patient Mode of arrival: ambulatory Limitations: no limitations History of Present Illness HPI narrative: Roni is a 52-year-old male patient presenting to clinic today with complaints of right lower quadrant pain x5 days. Reports that the pain comes and goes and is sharp. States that he has had some associated nausea without vomiting. He denies any fever or chills. History of kidney stones in the past. Also reports some urinary frequency. Denies any back pain. Last bowel movement was a few hours ago and normal for the patient. He denies any blood in his stool. Related Data Allergies Allergy/AdvReac Type Severity Reaction Status Date / Time erythromycin base Allergy Unknown Other Verified 03/21/23 11:53 sertraline AdvReac Severe Depression Verified 03/21/23 11:53 Review of Systems Review of Systems: Pertinent positives per HPI. Patient denies any fever, chills, rash, headache, visual changes, dizziness, cough, runny nose, sore throat, shortness of breath, chest pain, palpitations, nausea, vomiting, diarrhea, and constipation. PMFSH Past Medical History Medical History ADD (attention deficit disorder) Anxiety Hypercholesterolemia Kidney stones Liver disease Pneumonia Surgical History Surgical History History of tonsillectomy Hx of right knee surgery x3 Family History Family History Grandparent Acute myocardial infarction Other Breast cancer Mother Diabetes mellitus Hypertension Father Hypertension Social History Social History Smoking packs per day: 1 Smoking cigarettes per day: 20.0 Years smoked: 30 Smoking pack-years: 30.00 Smoking status: Current every day smoker Tobacco type: cigarettes Second hand tobacco smoke exposure: Yes Alcohol intake: current Drinks per week: 3 Substance use: current Substance use type: marijuana Other substance usage details: marijuana at night for sleep Living arrangements: alone Occupation/Education: occupation Gender identity (if verbalized by the patient): Male Sexual Orientation (if Verbalized by the Patient): Straight or Heterosexual Spiritual care concerns: No Agree to blood products: Yes Comments At the time of my signature, I reviewed and agree with the nursing past medical, surgical, social, and family history. There is no relevant family history pertinent to the patient complaint. Exam Narrative: General: Well-developed, well nourished, in no apparent distress. Head: Normocephalic, atraumatic. Cardio: Regular rate and rhythm, s1 and s2 normal, no murmur appreciated. Resp: Clear to auscultation bilaterally, no rhonchi, rales, wheezing or rubs. Abdomen: Soft, pliable, bowel sounds present in all quadrants, right lower quadrant tenderness to palpation, negative psoas, negative jarring, negative rovings, no organomegly, no CVAT tenderness. Course Course Emergency Course: Portions of this record may have been created with voice recognition software. Level of Care: Express Care Visit Vital Signs Vital signs: Vital Signs Temperature 36.8 C 03/21/23 11:52 Pulse Rate 66 03/21/23 11:52 Respiratory Rate 16 03/21/23 11:52 Blood Pressure 160/74 H 03/21/23 11:52 Pulse Oximetry 98 03/21/23 11:52 Oxygen Delivery Room Air 03/21/23 11:52 Temperature 36.8 C 03/21/23 11:53 Pulse Rate 66 03/21/23 11:53 Respiratory Rate 16 03/21/23 11:53 Blood Pressure 160/74 H 03/21/23 11:53 Pulse Oximetry 98 03/21/23 11:53 Oxygen Delivery Room Air 03/21/23 11:53 Vital signs reviewed MDM - A
== END 2023-03-21 12:09 | disposition short-term general hospital (02) ==
PROVIDERS: Emergency Provider Nurse Practitioner Family; PCP Family Medicine Adolescent Medicine
DX: R10.31 Right lower quadrant pain (principal); F17.210 Nicotine dependence, cigarettes, uncomplicated; E78.00 Pure hypercholesterolemia, unspecified
CPT/HCPCS: 81003; 99212; G0463

== ENCOUNTER 2023-03-21 12:40 | Emergency (ER) | payer OTHER, SELFPAY ==
--- NOTE | ~2023-03-21 | CT_ITS ---
. EXAMINATION: CT abdomen pelvis w con DATE: 03/21/2023 14:00 INDICATION: Right lower quadrant abdominal pain, nausea for 6 days TECHNIQUE: Computed tomography (CT) of the abdomen and pelvis was performed without intravenous contr ast. Automated exposure control and iterative reconstruction technique were employed. Exam dose: 309 .10 mGy-cm total exam DLP. COMPARISON: 07/09/2007 CT abdomen and pelvis FINDINGS: Minimal bilateral dependent lower lobe discoid atelectasis. Normal heart size. Coronary artery calcification. No pericardial or pleural effusion. The liver, gallbladder, bile ducts, spleen, pancreas and pancreatic duct and adrenal glands appear no rmal. 11 and 12 mm right renal cysts. 1.4 cm and 7 mm probable left renal cysts. Lower pole nonobstructing approximate 4 x 6 mm left renal calculus. Very extensive nephrolithiasis is noted on the right including upper pole staghorn calculus formation , with additional small stones of the mid and lower right kidney measuring up to approximately 2 x 4. 5 mm. No left or right ureteral calculus or hydroureteronephrosis. There is prostate enlargement and calcification. There is moderate diffuse thickening of the urinary bladder wall, likely due to prostate enlargement. Right vas deferens calcification, which may be associated with diabetes. Normal appendix. No bowel obstruction, bowel wall thickening, pneumatosis or intraperitoneal free air is detected. There is atherosclerotic calcification but normal caliber of the abdominal aorta. No intraperitoneal or retroperitoneal or pelvic mass lesion or adenopathy or ascites is detected. Small bilateral fat-containing inguinal hernias and approximately 1.7 x 2 cm fat-containing umbilical hernia. Transitional fifth lumbar vertebra. Severe degenerative disc disease at L3-4 and L4-5. Prominent degenerative change at the apophyseal todd ints at the mid and lower lumbar spine. No suspicious osteolytic or osteoblastic lesions are noted. IMPRESSION: Bilateral nephrolithiasis, right greater than left; no ureteral calculus or hydrouretero nephrosis Occasional bilateral renal probable cysts Normal appendix Prostate enlargement and calcification Right vas deferens calcification, which may be associated with diabetes Reviewed, dictated and finalized at [facility]. Reviewed, dictated and finalized at location L. IMPRESSION: Bilateral nephrolithiasis, right greater than left; no ureteral ca lculus or hydroureteronephrosis Occasional bilateral renal probable cysts Normal appendix Prostate enlargement and calcification Right vas deferens calcification, which may be associated with diabetes
--- NOTE | ~2023-03-21 | US_ITS ---
EXAMINATION: US abdomen limited DATE: 03/21/2023 14:30 INDICATION: Right upper quadrant abdominal pain. Elevated lipase. TECHNIQUE: Multiple grayscale and Doppler ultrasound images of the abdomen were obtained. COMPARISON: CT abdomen and pelvis 03/21/2023 FINDINGS: The visualized portions of the head and body of the pancreas are normal. The liver is abhijit l without focal lesion. No liver surface nodularity. There is antegrade flow in main portal vein. The gallbladder is contracted. No gallstones or sonographic Vidal sign. The common duct is normal and m easures 5 mm. IMPRESSION: 1. Normal right upper quadrant ultrasound. Reviewed, dictated and finalized at location A.
[2023-03-21 12:43] VITALS: BP 170/73; PULSE 70; RESP 20; TEMP 36.4; O2SAT 98
[2023-03-21 13:04] LABS: Appearance Urine Clear (Clear); Basophils Absolute Auto 0.1 K/mm3 (0.0-0.1); Basophils Percent Auto 0.9 % (0.2-1.2); Bilirubin Urine Negative (Negative); Blood Urine Negative (Negative); Color Urine Yellow (Yellow); Eosinophils Absolute Auto 0.3 K/mm3 (0-0.3); Eosinophils Percent Auto 2.1 % (0-4.4); Glucose Urine UA Negative (Negative); Hemoglobin 15.2 g/dL (14.0-18.0); Immature Granulocyte Absolute 0.04 K/mm3 (0.00-0.031); Immature Granulocyte Percent A 0.3 % (0-0.5); Ketones Urine Negative (Negative); Leukocyte Esterase Ur Negative LEU/UL (Negative); Lymphocytes Absolute Auto 3.58 K/mm3 (0.9-3.2); Lymphocytes Percent Auto 28.1 % (18.3-44.2); Mean Corpuscular Hemoglobin 29.2 pg (26-34); Mean Corpuscular Volume 88.3 fl (80-100); Mean Platelet Volume 9.4 fl (7.4-10.4); Monocytes Absolute Auto 1.1 K/mm3 (0.1-0.6); Monocytes Percent Auto 8.4 % (2.6-8.5); Neutrophils Absolute Auto 7.7 K/mm3 (1.3-6.7); Neutrophils Percent Auto 60.2 % (45.5-73.1); Nitrate Urine Negative (Negative); Platelet Count Result 379 k/mm3 (150-375); Protein Urine Negative (Negative); Red Blood Count 5.21 M/mm3 (4.6-6.20); Specific Grav Ur 1.008 (1.001-1.035); Urobilinogen Urine 0.2 mg/dL (<2.0); White Blood Count 12.7 K/mm3 (4.5-10.0); pH Urine 7.5 (5.0-9.0)
[2023-03-21 13:14] LABS: Alanine Aminotransferase 25 U/L (6-50); Albumin Level 4.5 g/dL (3.5-5.1); Alkaline Phosphatase 63 U/L (38-126); Anion Gap 7 mmol/L (8-16); Aspartate Amino Transferase 74 U/L (17-59); Bilirubin,Total 0.3 mg/dL (0.2-1.3); Blood Urea Nitrogen 12 mg/dL (9-20); Calcium 9.4 mg/dL (8.4-10.2); Carbon Dioxide 26 mmol/L (22-30); Chloride 104 mmol/L (98-107); Estimated CRCL calculation 89 ml/min; Estimated Glomerular Filt Rate > 60; Glucose 100 mg/dL (65-110); Lipase 1003 U/L (23-300); Potassium 3.9 mmol/L (3.4-5.0); Sodium 137 mmol/L (137-145)
[2023-03-21 13:15] LABS: Add Urine Microscopic? NO
--- NOTE | 2023-03-21 13:52 | ED.ABDPAIN ---
HPI - Abdominal Pain General Chief Complaint: Abdominal Pain Stated Complaint: abdominal pain Time Seen by Provider: 03/21/23 12:50 History of Present Illness HPI narrative: 52-year-old male presents here stating that he has having pain in his right upper quadrant, he had been sent from urgent care for rule out appendicitis. He does report some nausea. Has not had symptoms like this in the past. Related Data Allergies Allergy/AdvReac Type Severity Reaction Status Date / Time erythromycin base Allergy Unknown Other Verified 03/21/23 13:01 sertraline AdvReac Severe Depression Verified 03/21/23 13:01 Review of Systems Review of Systems: CONST: No fever. HEENT: No sore throat C/V: No chest pain RESP: No cough GI: Reports abdominal pain, nausea : No dysuria. M/S: No joint pain. SKIN: No rash. NEURO: [No headache or focal numbness or weakness] PSYCH: [No depression] PMFSH Past Medical History Medical History ADD (attention deficit disorder) Anxiety Hypercholesterolemia Kidney stones Liver disease Pneumonia Surgical History Surgical History History of tonsillectomy Hx of right knee surgery x3 Family History Family History Grandparent Acute myocardial infarction Other Breast cancer Mother Diabetes mellitus Hypertension Father Hypertension Social History Social History Smoking packs per day: 1 Smoking cigarettes per day: 20.0 Years smoked: 30 Smoking pack-years: 30.00 Smoking status: Current every day smoker Tobacco type: cigarettes Second hand tobacco smoke exposure: Yes Alcohol intake: current Drinks per week: 3 Substance use: current Substance use type: marijuana Other substance usage details: marijuana at night for sleep Living arrangements: alone Occupation/Education: occupation Gender identity (if verbalized by the patient): Male Sexual Orientation (if Verbalized by the Patient): Straight or Heterosexual Spiritual care concerns: No Agree to blood products: Yes Exam Narrative: EXAMINATION OF ORGAN SYSTEMS/BODY AREAS: Constitutional: Vital signs per nursing GENERAL:[No acute distress, non-toxic appearing.] HEAD: Normal with no signs of head trauma. EYES: EOMI, conjunctiva normal ENT: Hearing grossly intact LUNGS: Nonlabored breathing. HEART: [Regular rate and rhythm] ABD: [Soft], slight tenderness to RUQ, no epigastric or RLQ tenderness EXT: Normal range of motion SKIN: [No rashes or lesions.] NEURO: [Alert and oriented x 3. No gross focal sensory or strength deficits.] PSYCH: Normal affect Course Vital Signs Vital signs: Vital Signs Temperature 97.6 F 03/21/23 12:43 Pulse Rate 70 03/21/23 12:43 Respiratory Rate 20 03/21/23 12:43 Blood Pressure 170/73 H 03/21/23 12:43 Pulse Oximetry 98 03/21/23 12:43 Oxygen Delivery Room Air 03/21/23 12:43 Temperature 97.6 F 03/21/23 12:43 Pulse Rate 68 03/21/23 15:05 Respiratory Rate 16 03/21/23 15:05 Blood Pressure 136/72 03/21/23 15:05 Pulse Oximetry 100 03/21/23 15:05 Oxygen Delivery Room Air 03/21/23 12:43 MDM - Abdominal Pain MDM Narrative Medical decision making narrative: Electronic medical record was reviewed. Patient presented to the ED with complaint of [abdominal pain and vomiting]. Vitals [were within acceptable limits]. Physical exam revealed [tenderness to palpation in right upper quadrant]. Based on the patient's history and physical exam, my differential includes but is not limited to [gastritis, gastroenteritis, cholecystitis, pancreatitis, appendicitis]. [IV access was established by nursing staff]. CBC, BMP, lipase, LFTs, bilirubin and alk phos were obtained. Labs were pertinent for elevated lipase however he has no epigastric pain.
[2023-03-21 15:05] VITALS: BP 136/72; PULSE 68; RESP 16; O2SAT 100
== END 2023-03-21 15:32 | disposition home or self-care (01) ==
PROVIDERS: Emergency Medicine; Emergency Provider Emergency Medicine; PCP Family Medicine Adolescent Medicine
DX: R10.11 Right upper quadrant pain (principal); R74.8 Abnormal levels of other serum enzymes; Z87.442 Personal history of urinary calculi; E78.00 Pure hypercholesterolemia, unspecified; K76.9 Liver disease, unspecified; F98.8 Other specified behavioral and emotional disorders with onset usually occurring in childhood and adolescence; F41.9 Anxiety disorder, unspecified; F17.210 Nicotine dependence, cigarettes, uncomplicated; Z87.01 Personal history of pneumonia (recurrent); N20.0 Calculus of kidney; N40.0 Benign prostatic hyperplasia without lower urinary tract symptoms
CPT/HCPCS: 36415; 74177; 76705; 80053; 81003; 83690; 85025; 99284; Q9967

== ENCOUNTER 2023-03-27 11:24 | Outpatient (CLI) | payer OTHER, SELFPAY ==
[2023-03-27 11:52] LABS: Hematocrit 46.5 % (42.0-52.0); Hemoglobin 15.5 g/dL (14.0-18.0); Mean Corpuscular HGB Conc 33.3 g/dl (32-36); Mean Corpuscular Hemoglobin 29.6 pg (26-34); Mean Corpuscular Volume 88.7 fl (80-100); Mean Platelet Volume 9.2 fl (7.4-10.4); Platelet Count Result 370 k/mm3 (150-375); Red Blood Count 5.24 M/mm3 (4.6-6.20); Red Cell Distribution Width 13.2 % (11.5-14.5); White Blood Count 11.3 K/mm3 (4.5-10.0)
[2023-03-27 12:11] LABS: Alanine Aminotransferase 21 U/L (6-50); Albumin Level 4.6 g/dL (3.5-5.1); Alkaline Phosphatase 67 U/L (38-126); Anion Gap 8 mmol/L (8-16); Aspartate Amino Transferase 63 U/L (17-59); Bilirubin,Total 0.3 mg/dL (0.2-1.3); Blood Urea Nitrogen 15 mg/dL (9-20); Calcium 9.3 mg/dL (8.4-10.2); Carbon Dioxide 26 mmol/L (22-30); Chloride 103 mmol/L (98-107); Estimated Glomerular Filt Rate > 60; Glucose 90 mg/dL (65-110); Lipase 1516 U/L (23-300); Potassium 3.8 mmol/L (3.4-5.0); Sodium 137 mmol/L (137-145); Triglycerides 108 mg/dL (<150)
== END 2023-03-27 11:25 | disposition home or self-care (01) ==
PROVIDERS: PCP Family Medicine Adolescent Medicine; Visit Provider Nurse Practitioner
DX: R10.11 Right upper quadrant pain (principal); R74.8 Abnormal levels of other serum enzymes
CPT/HCPCS: 36415; 80053; 83690; 84478; 85027

== ENCOUNTER 2023-04-10 09:42 | Outpatient (CLI) | payer OTHER, SELFPAY ==
--- NOTE | ~2023-04-10 | MR_ITS ---
EXAMINATION: MR MRCP wo/w con/w 3D wo ind DATE: 04/10/2023 11:07 INDICATION: Abnormal levels of other serum enzymes TECHNIQUE: Magnetic resonance imaging (MRI) of the abdomen was performed without and with 14 mL Multi jessica intravenous contrast. Sequences included coronal T2-weighted SS-FSE, coronal T2-weighted FS SS- FSE, coronal T2-weighted FS FIESTA, axial T2-weighted FS FIESTA, axial T2-weighted FIESTA, sagittal T 2-weighted SS-FSE, axial T1-weighted dual-echo FSPGR, axial T2-weighted SS-FSE, axial T1-weighted LAV A, axial T2-weighted STIR FSE. Thick-slab T2-weighted FRFSE-XL images were obtained for magnetic reso nance cholangiopancreatography (MRCP). Rotating maximum intensity projection 3-D reconstructions of t he volumetric data were created by the technologist. Postcontrast sequences included a time course of axial T1-weighted LAVA. COMPARISON: CT and ultrasound dated 03/21/2023 FINDINGS: ABDOMEN MRI: Heart size is normal. No pericardial or pleural effusion. Liver, gallbladder, spleen, pancreas and bi lateral adrenal glands are normal. There are bilateral T2 hyperintense nonenhancing renal cysts, the largest measuring up to 1.5 cm in the left kidney. Bowels are unremarkable with no obstruction. Bladd er is normal. No ascites. No pathologically enlarged abdominal or pelvic lymphadenopathy. 2.3 x 1.4 c m T2 hyperintense lobular nonenhancing cystic lesion posterior to the inferior left acetabulum most l ikely representing a ganglion cyst. Mild lumbar dextrocurvature. Severe lower lumbar spondylosis with fibrofatty degenerative endplate changes associated with severe disc height loss at L3-L4 and L4-5. L5 is sacralized on the left. ABDOMEN MRCP: No intra or extra hepatic biliary ductal dilation. The common bile duct measures up to 4 mm in diamet er which is normal. No evident cholelithiasis or choledocholithiasis. IMPRESSION: 1. Normal liver with no intra or extra hepatic biliary ductal dilation and no cholelithiasis/choledoc holithiasis. Reviewed, dictated and finalized at location B. IMPRESSION: 1. Normal liver with no intra or extra hepatic biliary ductal dilation and no c holelithiasis/choledocholithiasis.
== END 2023-04-10 09:43 | disposition home or self-care (01) ==
LOC: ANHIMG 09:43
PROVIDERS: PCP Family Medicine Adolescent Medicine; Visit Provider Nurse Practitioner
DX: R74.8 Abnormal levels of other serum enzymes (principal); K85.90 Acute pancreatitis without necrosis or infection, unspecified; R74.01 Elevation of levels of liver transaminase levels; R10.11 Right upper quadrant pain
CPT/HCPCS: 74183; 76376; A9577

== ENCOUNTER → 2023-05-09 07:59 | Outpatient (CLI) | payer OTHER, SELFPAY ==
--- NOTE | ~2023-05-09 | XR_ITS ---
EXAMINATION: XR abdomen/kub 1V DATE: 05/09/2023 08:19 INDICATION: Bilateral renal stones TECHNIQUE: A supine view of the abdomen on 2 radiographs was obtained. COMPARISON: CT dated 03/21/2023 FINDINGS: 4 mm stone at the lower pole of the left kidney. Cluster of at least 3 stones at the upper pole the r ight kidney the largest measuring 7 mm. No stones seen along the course of the ureters. Phlebolith in the left hemipelvis. Moderate amount of gas and stool scattered throughout the colon. No dilated gas -filled bowel to suggest obstruction. Visualized lower lungs are clear. Heart size is normal. Severe lower lumbar spondylosis. IMPRESSION: 1. Bilateral nephrolithiasis. Reviewed, dictated and finalized at location A.
== END ==
PROVIDERS: PCP Family Medicine Adolescent Medicine; Visit Provider Urology
DX: N20.0 Calculus of kidney (principal)
CPT/HCPCS: 74018

== ENCOUNTER → 2023-05-22 09:15 | Outpatient (CLI) | payer OTHER, SELFPAY ==
--- NOTE | ~2023-05-22 | CT_ITS ---
Non-contrast CT scan of the Abdomen and Pelvis Clinical indication: Kidney stone Technique: 2.5 mm axial scans were obtained through the abdomen and pelvis without intravenous or or al contrast. Dose reduction technique was used on this scan by utilizing automated exposure control a nd iterative reconstruction technique. The dose-length product (DLP) was 286.51 mGy-cm. COMPARISON: 03/21/2023 Findings: Images through the lung bases reveal no abnormalities. Bilateral nonobstructing renal stones are present, largest in the right kidney measuring 9 mm in diam eter. No ureteral stone or hydronephrosis on either side. The liver, spleen, pancreas, gallbladder, and adrenals appear normal. There are atherosclerotic calci fications of the aorta. There is no evidence of bowel obstruction. Images through the pelvis were performed. There is no evidence of ascites or lymphadenopathy. Urinary bladder unremarkable. Prostate gland and seminal vesicles are unremarkable. Impression: Bilateral nephrolithiasis, as detailed above. Reviewed, dictated and finalized at location . Impression: Bilateral nephrolithiasis, as detailed above.
== END ==
PROVIDERS: PCP Urology; Visit Provider Urology
DX: N20.0 Calculus of kidney (principal)
CPT/HCPCS: 74176

== ENCOUNTER 2023-06-05 07:50 | Outpatient (CLI) | payer OTHER, SELFPAY ==
[2023-06-05 08:52] LABS: Partial Thromboplastin Time 26.3 SECONDS (22.3-36.8); Prothrombin Time 13.1 Seconds (11.1-14.7)
== END 2023-06-05 07:51 | disposition home or self-care (01) ==
LOC: ANHSURGERY 07:53
PROVIDERS: PCP Family Medicine Adolescent Medicine; Visit Provider Urology
DX: N20.0 Calculus of kidney (principal); Z01.818 Encounter for other preprocedural examination
CPT/HCPCS: 36415; 85610; 85730; 87086

== ENCOUNTER 2023-06-09 01:28 | Day surgery (SDC) | payer OTHER, SELFPAY ==
[2023-06-02 10:47] VITALS: BMI 20.7
--- NOTE | 2023-06-02 10:48 | PC.NURSE ---
Addendum entered by Ale Ryan RN 06/05/23 07:34: PLEASE TAKE YOUR QUETIAPINE AT BEDTIME ON 06/08 USUAL, NOT THE MORNING OF SURGERY. Original Note: Report to the Outpatient Waiting Room, entrance under the green pavilion located off [facility], at time _1230_ on date _[id number]_. Planned Procedure Time: _230pm_. Time changes happen often and if your time is changed the preop area will call you the afternoon before. - You and your visitor will be asked to self-screen and do not enter if you have any COVID symptoms. - A mask is optional within the hospital at this time. Patients may have clear liquids (water, carbonated beverages, clear teas, apple juice) until 3 hours prior to surgery with a maximum of 20 ounces. - No food from midnight until time of surgery Take the following medications with a SIP of water the morning of surgery: ___Alprazolam, Quetiapine and Adderol DO NOT STOP ANY OF YOUR OTHER PRESCRIPTION MEDICATIONS PRIOR TO SURGERY ?EXCEPT THE FOLLOWING Medications to discontinue per physician ___None Date to take last dose Please no make-up, nail telugu, hairspray, perfume, deodorant, or body powder the day of surgery. No jewelry (including any body piercings) or valuables the day of surgery, leave them at home. Please take a shower or bath the night before, or the morning of, surgery with an antibacterial soap. Wear comfortable, loose fitting clothing. - Jewelry must be removed prior to entering the operating room. Rings and piercings that are not removed may be cut off. - The hospital will not accept responsibility for valuables. - Please leave all valuables, including medications, at home the day of surgery. If you are going home after surgery, a licensed minibus driver must drive you home. - NO public transportation without another adult if you receive anesthesia. - We recommend that an adult stay with you for 24 hours following discharge. - We also recommend that you do not drive, make important decision, drink alcoholic beverages, or take any drugs that were not prescribed by your health care provider for at least 24 hours after your discharge time. Follow any additional instructions given to you from your surgeon. If you or anyone in your household have experienced Covid symptoms in the past week, please notify your surgeon or the nurse liaison at the phone number below for possible testing. Telephone instructions given to __Patient___and asked if any additional questions and then verbalized understanding. Patient advised to call surgeon office or pre surgery nurse liaison [phone] if any additional questions.
[2023-06-09] VITALS (7 sets, daily range): BP systolic 133–174; BP diastolic 78–89; PULSE 64–94; RESP 16–20; TEMP 36.6–36.7; O2SAT 98–100
--- NOTE | ~2023-06-09 | XR_ITS ---
Supine and upright views of the abdomen Clinical history: Lithotripsy COMPARISON: 05/09/2023 Findings: Bowel gas pattern is nonspecific. No evidence for obstruction or free air. 4 mm left lower pole renal stone is unchanged. Right upper renal stones are present, measuring up to [address] ructures are intact. Impression: Bilateral nephrolithiasis, unchanged. Reviewed, dictated and finalized at location . Impression: Bilateral nephrolithiasis, unchanged.
--- NOTE | 2023-06-09 07:20 | WPDHPUPDATE1 ---
History and Physical Update Update Date/Time: 06/09/23 07:20 History and Physical has been reviewed, including an updated exam of the patient. There are NO changes in the patient's condition. Risks, benefits, and alternatives have been discussed and questions answered. Patient agrees to proceed with procedure.
[2023-06-09] MEDS: LACTATED RINGERS 1,000 ML 30 ML IV CONT (13:00)
--- NOTE | 2023-06-09 13:13 | WPDANESEPPF ---
Anes - Initial Pre Proc Eval Procedure: Operation Date: 06/09/23 14:30 Proposed Procedures p Right Extracorporeal Shock Wave Lithotripsy - Anmol Padilla MD Date/Time: 06/09/23 13:13 Surgeon: Anmol Padilla MD Pre Op Diagnosis: renal stones Patient Data Age: 52 Gender: M Height: 1.75 m Weight: 63.6 kg Allergies Allergy/AdvReac Type Severity Reaction Status Date / Time erythromycin base Allergy Unknown Other Verified 06/02/23 10:40 sertraline AdvReac Severe Depression Verified 06/02/23 10:40 Home Medications Medication Instructions Recorded Confirmed Type dextroamphetamine-amphetamine 30 30 mg PO BID #60 tabs 04/04/23 06/02/23 Rx mg tablet sodium,potassium,mag sulfates 17.5 See Rx Instructions PO .COMPLEX 04/05/23 05/05/23 Rx gram-3.13 gram-1.6 gram oral soln #354 mL (Suprep Bowel Prep Kit) quetiapine 50 mg tablet 50 mg PO QHS #30 tabs 04/17/23 06/02/23 Rx alprazolam 2 mg tablet 2 mg PO TID #90 tabs 04/21/23 06/02/23 Rx vibegron 75 mg tablet (Gemtesa) 75 mg PO DAILY 05/04/23 06/02/23 History dextroamphetamine-amphetamine ER 60 mg PO DAILY #60 caps 06/02/23 Rx 30 mg 24hr capsule,extend release (Adderall XR) Patient hx anesthesia problems: none Family hx anesthesia problems: none Results Review: All pre-operative results and documents have been reviewed as part of the pre-operative evaluation. [facility] Past Medical History Medical History Acute pancreatitis ADD (attention deficit disorder) Anxiety Colon cancer screening Elevated AST (SGOT) Hypercholesterolemia Kidney stones Liver disease Pneumonia RUQ pain Umbilical hernia Surgical History Surgical History History of tonsillectomy Hx of right knee surgery x3 Family History Family History Grandparent Acute myocardial infarction Other Breast cancer Mother Diabetes mellitus Hypertension Father Hypertension Social History Social History Smoking packs per day: 0.5 Smoking cigarettes per day: 10.0 Years smoked: 30 Smoking pack-years: 15.00 Smoking status: Current every day smoker Tobacco type: cigarettes Second hand tobacco smoke exposure: Yes Alcohol intake: former Drinks per week: 3 Alcohol use details: Pt states is not currently drinking due to health issues Substance use: current Substance use type: marijuana Other substance usage details: Occasional edible at night for sleep. Living arrangements: with family Occupation/Education: occupation Gender identity (if verbalized by the patient): Male Sexual Orientation (if Verbalized by the Patient): Straight or Heterosexual Spiritual care concerns: No Agree to blood products: Yes Anes - Eval Final PreProcedure Day of Procedure 06/09/23 13:13 Patient weight: normal Heart: regular rate and rhythm Lungs: clear to auscultation Airway: Mallampati scale class II Neurological: alert and oriented Last oral intake: >/= 8 hours ASA classification: III Emergent: no Anesthetic plan: proceed Anesthesia type and monitoring: general LMA and standard monitoring Results Review: All pre-operative results and documents have been reviewed as part of the pre-operative evaluation. Informed Consent: The patient's anesthetic plan and its attendant risks and benefits were discussed with the patient/family/POA. Questions were solicited and answers provided to the satisfaction of the patient/family/POA.
[2023-06-09] MEDS: ceFAZolin 2 GM/D5W 50 ML 2 GM/50 ML BAG IVPB (13:16)
--- NOTE | 2023-06-09 13:30 | W.PM.PROC2 ---
Procedure Note - Detailed Date of Procedure 06/09/23 Pre-op Diagnosis Right renal stones Post-op Diagnosis Same Procedure Performed Right ESWL Surgeon Anmol Padilla MD Anesthesia General Description of Procedure The patient was brought to the operative suite where he was placed in the supine position on the Dornier lithotripsy table. The focal point of the lithotripter was placed at the largest of stones in his right kidney, approximately 8-9 mm upper pole calyx. A total of 2500 shocks were delivered at a power setting of 4. There appeared to be good fragmentation of the stone. The patient tolerated the procedure well and was taken to the recovery room in good condition. Drains No Packing No Pathology None sent Complications No immediate complications Condition Stable Disposition PACU
--- NOTE | 2023-06-09 14:30 | SUR.PHASEI ---
1430 - WITHOUT C/O PAIN. AWAKE, SKIN INTACT WITHOUT REDNESS.
== END 2023-06-09 16:00 | disposition home or self-care (01) ==
PROVIDERS: PCP Family Medicine Adolescent Medicine; Visit Provider Urology
PROC: (CPT 50590; principal; 2023-06-09 14:30)
DX: N20.0 Calculus of kidney (principal); F98.8 Other specified behavioral and emotional disorders with onset usually occurring in childhood and adolescence; F41.9 Anxiety disorder, unspecified; F17.210 Nicotine dependence, cigarettes, uncomplicated
CPT/HCPCS: 50590; 36415; 74018; 85610; 85730; 87086; J0690; J1100; J2250; J2405; J2704; J3010; J7120

== ENCOUNTER 2023-06-11 06:43 | Emergency (ER) | payer OTHER, SELFPAY ==
[2023-06-11 06:45] VITALS: BP 139/82; PULSE 88; RESP 16; TEMP 36.6; O2SAT 99
--- NOTE | 2023-06-11 07:14 | ED.MALEGU ---
HPI - Male Genitourinary General Chief complaint: Urogenital-Male Stated complaint: blood urine, recently passed a lot kidney stones Time Seen by Provider: 06/11/23 07:14 Source: patient Mode of arrival: ambulatory Limitations: no limitations History of Present Illness HPI Narrative: Patient is a status post lithotripsy 5 days ago, was doing okay since, woke up this morning with pinkish urine. He denies any pain, fever, chills, nausea, vomiting. Patient brought a 5 passed stone in a cup. Related Data Home Medications Medication Instructions Recorded Confirmed vibegron 75 mg tablet (Gemtesa) 75 mg PO DAILY 05/04/23 06/02/23 Allergies Allergy/AdvReac Type Severity Reaction Status Date / Time erythromycin base Allergy Unknown Other Verified 06/09/23 13:18 sertraline AdvReac Severe Depression Verified 06/09/23 13:18 Review of Systems Review of Systems: All systems reviewed & are unremarkable except as noted in HPI and below PMFSH Past Medical History Medical History Acute pancreatitis ADD (attention deficit disorder) Anxiety Colon cancer screening Elevated AST (SGOT) Hypercholesterolemia Kidney stones Liver disease Pneumonia RUQ pain Umbilical hernia Surgical History Surgical History History of tonsillectomy Hx of right knee surgery x3 Family History Family History Grandparent Acute myocardial infarction Other Breast cancer Mother Diabetes mellitus Hypertension Father Hypertension Social History Social History Smoking packs per day: 0.5 Smoking cigarettes per day: 10.0 Years smoked: 30 Smoking pack-years: 15.00 Smoking status: Current every day smoker Tobacco type: cigarettes Second hand tobacco smoke exposure: Yes Alcohol intake: former Drinks per week: 3 Alcohol use details: Pt states is not currently drinking due to health issues Substance use: current Substance use type: marijuana Other substance usage details: Occasional edible at night for sleep. Living arrangements: with family Occupation/Education: occupation Gender identity (if verbalized by the patient): Male Sexual Orientation (if Verbalized by the Patient): Straight or Heterosexual Spiritual care concerns: No Agree to blood products: Yes Exam Narrative: General appearance: Well-developed, well-nourished Skin: Normal color Head: Normocephalic, nontraumatic Eyes: Clear conjunctiva ENT: Oropharynx normal, ears normal, nose normal Neck: Supple, nontender Chest and respiratory: Airway patent, no respiratory distress, no accessory muscle use Heart: Regular rate/rhythm Abdomen: Soft, nontender, no organomegaly, quiet bowel sounds Vascular: Normal peripheral pulses, normal capillary refill. Musculoskeletal: Normal range of motion, nontender back Neurologic: Alert and oriented ?3, [employer] is normal as tested, no gross motor deficit Course Course Emergency Course: Asymptomatic Reevaluation(s) Reevaluation #1: Patient has been asymptomatic until the time of discharge Date: 06/11/23 Time: 08:07 Vital Signs Vital signs: Vital Signs Temperature 36.6 C 06/11/23 06:45 Pulse Rate 88 06/11/23 06:45 Respiratory Rate 16 06/11/23 06:45 Blood Pressure 139/82 06/11/23 06:45 Pulse Oximetry 99 06/11/23 06:45 Oxygen Delivery Room Air 06/11/23 06:45 Temperature 36.6 C 06/11/23 06:45 Pulse Rate 88 06/11/23 06:45 Respiratory Rate 16 06/11/23 06:45 Blood Pressure 139/82
[2023-06-11 07:19] LABS: Basophils Absolute Auto 0.1 K/mm3 (0.0-0.1); Basophils Percent Auto 0.9 % (0.2-1.2); Eosinophils Absolute Auto 0.3 K/mm3 (0-0.3); Eosinophils Percent Auto 1.9 % (0-4.4); Hematocrit 45.7 % (42.0-52.0); Hemoglobin 15.2 g/dL (14.0-18.0); Immature Granulocyte Absolute 0.05 K/mm3 (0.00-0.031); Immature Granulocyte Percent A 0.4 % (0-0.5); Lymphocytes Percent Auto 16.4 % (18.3-44.2); Mean Corpuscular HGB Conc 33.3 g/dl (32-36); Mean Corpuscular Hemoglobin 29.9 pg (26-34); Mean Corpuscular Volume 89.8 fl (80-100); Mean Platelet Volume 9.3 fl (7.4-10.4); Monocytes Absolute Auto 1.2 K/mm3 (0.1-0.6); Monocytes Percent Auto 8.8 % (2.6-8.5); Neutrophils Percent Auto 71.6 % (45.5-73.1); Platelet Count Result 305 k/mm3 (150-375); Red Blood Count 5.09 M/mm3 (4.6-6.20)
[2023-06-11 07:20] LABS: Appearance Urine Slightly Cloudy (Clear); Bilirubin Urine Negative (Negative); Blood Urine 3+ (Negative); Glucose Urine UA Negative (Negative); Ketones Urine Negative (Negative); Leukocyte Esterase Ur Trace LEU/UL (Negative); Nitrate Urine Negative (Negative); Protein Urine 2+ mg/dL (Negative); Specific Grav Ur <= 1.005 (1.001-1.035); Urobilinogen Urine 0.2 mg/dL (<2.0); pH Urine 5.5 (5.0-9.0)
[2023-06-11 07:23] LABS: Bacteria Urine None Seen /hpf; Color Urine Light Red (Yellow); Non Pathogenic Casts 0-2; RBC Urine >100 /hpf (0-2); Squamous Epithelial Cell Urine None seen /hpf (Few)
[2023-06-11 07:29] LABS: Alanine Aminotransferase 20 U/L (6-50); Albumin Level 4.1 g/dL (3.5-5.1); Alkaline Phosphatase 64 U/L (38-126); Anion Gap 8 mmol/L (8-16); Aspartate Amino Transferase 60 U/L (17-59); Bilirubin,Total 0.5 mg/dL (0.2-1.3); Blood Urea Nitrogen 15 mg/dL (9-20); Calcium 9.2 mg/dL (8.4-10.2); Carbon Dioxide 25 mmol/L (22-30); Chloride 102 mmol/L (98-107); Estimated CRCL calculation 85 ml/min; Estimated Glomerular Filt Rate > 60; Glucose 134 mg/dL (65-110); Potassium 3.7 mmol/L (3.4-5.0); Sodium 135 mmol/L (137-145)
[2023-06-11 07:35] LABS: Add Urine Microscopic? YES
--- NOTE | 2023-06-11 09:11 | PC.NURSE ---
Pt left after talking with the EDP and prior receiving DC instructions.
== END 2023-06-11 09:21 | disposition home or self-care (01) ==
LOC: ANHED 08:13
PROVIDERS: Emergency Medicine; Emergency Provider Emergency Medicine; PCP Family Medicine Adolescent Medicine
DX: R31.9 Hematuria, unspecified (principal); E78.00 Pure hypercholesterolemia, unspecified; K76.9 Liver disease, unspecified; F98.8 Other specified behavioral and emotional disorders with onset usually occurring in childhood and adolescence; F41.9 Anxiety disorder, unspecified; F17.210 Nicotine dependence, cigarettes, uncomplicated; Z87.442 Personal history of urinary calculi; Z87.01 Personal history of pneumonia (recurrent)
CPT/HCPCS: 36415; 80053; 81001; 85025; 87086; 99283

== ENCOUNTER 2023-06-23 10:12 | Outpatient (CLI) | payer OTHER, SELFPAY ==
--- NOTE | ~2023-06-23 | XR_ITS ---
EXAMINATION: XR abdomen/kub 1V INDICATION: Calcium kidney stone TECHNIQUE: Supine views of the abdomen were obtained on 2 radiographs. COMPARISON: 06/09/2023 FINDINGS: A 4 mm stone projects in the left kidney lower pole. Previously described right kidney uppe r pole stones are not well demonstrated, possibly due to interval lithotripsy. No stones are identifi ed along the expected courses of ureters or the urinary bladder. There is a phlebolith of the left pe lvis. There is severe lower lumbar spondylosis. The visualized lung bases are clear. IMPRESSION: 1. Stable left nephrolithiasis. 2. Probable interval treatment of previously described right nephrolithiasis. Reviewed, dictated and finalized at location F.
== END 2023-06-23 10:13 | disposition home or self-care (01) ==
LOC: ANHIMG 10:15
PROVIDERS: PCP Family Medicine Adolescent Medicine; Visit Provider Urology
DX: N20.0 Calculus of kidney (principal)
CPT/HCPCS: 74018

== ENCOUNTER 2023-06-29 07:48 | Outpatient (CLI) | payer OTHER, SELFPAY ==
[2023-06-29 08:32] LABS: INR 0.9; Prothrombin Time 12.3 Seconds (11.1-14.7)
[2023-06-29 08:42] LABS: Partial Thromboplastin Time 27.5 SECONDS (22.3-36.8)
== END 2023-06-29 07:49 | disposition home or self-care (01) ==
LOC: ANHSURGERY 07:50
PROVIDERS: PCP Family Medicine Adolescent Medicine; Visit Provider Urology
DX: N20.0 Calculus of kidney (principal); Z01.818 Encounter for other preprocedural examination
CPT/HCPCS: 36415; 85610; 85730; 87086

== ENCOUNTER 2023-07-07 05:32 | Day surgery (SDC) | payer OTHER, SELFPAY ==
[2023-06-28 10:44] VITALS: BMI 22.1
--- NOTE | 2023-06-28 10:48 | PC.NURSE ---
Report to the Outpatient Waiting Room, entrance under the green pavilion located off [facility], at time 6:00 on date 07/07/23. Planned Procedure Time: 7:30. Time changes happen often and if your time is changed the preop area will call you the afternoon before. - You and your visitor will be asked to self-screen and do not enter if you have any COVID symptoms. - A mask is optional within the hospital at this time. Patients may have clear liquids (water, carbonated beverages, clear teas, apple juice) until 3 hours prior to surgery (4:30) with a maximum of 20 ounces. - No food from midnight until time of surgery Take the following medications with a SIP of water the morning of surgery: ALPRAZOLAM IF NEEDED DO NOT STOP ANY OF YOUR OTHER PRESCRIPTION MEDICATIONS PRIOR TO SURGERY ?EXCEPT THE FOLLOWING Medications to discontinue per physician: N/A Date to take last dose: N/A Please no make-up, nail wolof, hairspray, perfume, deodorant, or body powder the day of surgery. No jewelry (including any body piercings) or valuables the day of surgery, leave them at home. Please take a shower or bath the night before, or the morning of, surgery with an antibacterial soap. Wear comfortable, loose fitting clothing. - Jewelry must be removed prior to entering the operating room. Rings and piercings that are not removed may be cut off. - The hospital will not accept responsibility for valuables. - Please leave all valuables, including medications, at home the day of surgery. If you are going home after surgery, a licensed auto driver must drive you home. - NO public transportation without another adult if you receive anesthesia. - We recommend that an adult stay with you for 24 hours following discharge. - We also recommend that you do not drive, make important decision, drink alcoholic beverages, or take any drugs that were not prescribed by your health care provider for at least 24 hours after your discharge time. Follow any additional instructions given to you from your surgeon. If you or anyone in your household have experienced Covid symptoms in the past week, please notify your surgeon or the nurse liaison at the phone number below for possible testing. Telephone instructions given to PT - DIAZ URBAN and asked if any additional questions and then verbalized understanding. Patient advised to call surgeon office or pre surgery nurse liaison [phone] if any additional questions.
[2023-07-07] VITALS (7 sets, daily range): BP systolic 95–132; BP diastolic 63–93; PULSE 54–81; RESP 12–14; TEMP 36.4–36.5; O2SAT 97–100
--- NOTE | ~2023-07-07 | XR_ITS ---
EXAMINATION: XR abdomen/kub 1V DATE: 07/07/2023 06:52 INDICATION: Kidney stone. TECHNIQUE: A supine view of the abdomen on 2 radiographs was obtained. COMPARISON: Abdomen radiographs 06/23/2023, CT abdomen and pelvis 05/22/2023 FINDINGS: There are no dilated loops of bowel. There are phleboliths in the pelvis. The kidneys are o bscured by bowel. There is a 5 mm stone in left kidney lower pole. IMPRESSION: 1. 5 mm left kidney stone. Reviewed, dictated and finalized at location E. IMPRESSION: 1. 5 mm left kidney stone.
--- NOTE | 2023-07-07 06:42 | WPDHPUPDATE1 ---
History and Physical Update Update Date/Time: 07/07/23 06:42 History and Physical has been reviewed, including an updated exam of the patient. There are NO changes in the patient's condition. Risks, benefits, and alternatives have been discussed and questions answered. Patient agrees to proceed with procedure.
--- NOTE | 2023-07-07 07:07 | WPDANESEPPF ---
Anes - Initial Pre Proc Eval Procedure: Operation Date: 07/07/23 07:30 Proposed Procedures p Left Extracorporeal Shock Wave Lithotripsy - Anmol Padilla MD Date/Time: 07/07/23 07:07 Surgeon: Anmol Padilla MD Pre Op Diagnosis: Lt Kidney Stone Patient Data Age: 53 Gender: M Height: 1.75 m Weight: 68 kg Allergies Allergy/AdvReac Type Severity Reaction Status Date / Time erythromycin base Allergy Unknown Other Verified 06/28/23 10:42 sertraline AdvReac Severe Depression Verified 06/28/23 10:42 Home Medications Medication Instructions Recorded Confirmed Type sodium,potassium,mag sulfates 17.5 See Rx Instructions PO .COMPLEX 04/05/23 06/28/23 Rx gram-3.13 gram-1.6 gram oral soln #354 mL (Suprep Bowel Prep Kit) quetiapine 50 mg tablet 50 mg PO QHS #30 tabs 04/17/23 06/28/23 Rx alprazolam 2 mg tablet 2 mg PO TID #90 tabs 04/21/23 06/28/23 Rx dextroamphetamine-amphetamine ER 60 mg PO DAILY #60 caps 06/29/23 Rx 30 mg 24hr capsule,extend release (Adderall XR) Patient hx anesthesia problems: none Family hx anesthesia problems: none Results Review: All pre-operative results and documents have been reviewed as part of the pre-operative evaluation. [facility] Past Medical History Medical History Acute pancreatitis ADD (attention deficit disorder) Anxiety Colon cancer screening Elevated AST (SGOT) Hypercholesterolemia Kidney stones Liver disease Pneumonia RUQ pain Umbilical hernia Surgical History Surgical History History of tonsillectomy Hx of right knee surgery x3 Family History Family History Grandparent Acute myocardial infarction Other Breast cancer Mother Diabetes mellitus Hypertension Father Hypertension Social History Social History Smoking packs per day: 1 Smoking cigarettes per day: 20.0 Years smoked: 30 Smoking pack-years: 30.00 Smoking status: Current every day smoker Tobacco type: cigarettes Second hand tobacco smoke exposure: Yes Alcohol intake: current Drinks per week: 2 Alcohol use details: Pt states is not currently drinking due to health issues Substance use: current Substance use type: marijuana Other substance usage details: Occasional edible at night for sleep. Living arrangements: alone Occupation/Education: occupation Gender identity (if verbalized by the patient): Male Sexual Orientation (if Verbalized by the Patient): Straight or Heterosexual Spiritual care concerns: No Agree to blood products: Yes Anes - Eval Final PreProcedure Day of Procedure 07/07/23 07:07 Patient weight: normal Heart: regular rate and rhythm Lungs: decreased breath sounds Airway: Mallampati scale class II Neurological: alert and oriented Last oral intake: >/= 8 hours ASA classification: III Emergent: no Anesthetic plan: proceed Anesthesia type and monitoring: general LMA and standard monitoring Results Review: All pre-operative results and documents have been reviewed as part of the pre-operative evaluation. Informed Consent: The patient's anesthetic plan and its attendant risks and benefits were discussed with the patient/family/POA. Questions were solicited and answers provided to the satisfaction of the patient/family/POA.
[2023-07-07] MEDS: ceFAZolin 2 GM/D5W 50 ML 2 GM/50 ML BAG IVPB (07:24)
[2023-07-07] MEDS: LACTATED RINGERS 1,000 ML 30 ML IV CONT (07:27)
--- NOTE | 2023-07-07 08:06 | W.PM.PROC2 ---
Procedure Note - Detailed Date of Procedure 07/07/23 Pre-op Diagnosis Lt Kidney Stone Post-op Diagnosis Same Procedure Performed Left ESWL Surgeon Anmol Padilla MD Anesthesia General Description of Procedure The patient was brought to the operative suite where he was placed in the supine position on the Dornier lithotripsy table. The focal point of the lithotripter was placed at a 5-6mm left renal calculus. A total of 2500 shocks were delivered at a power setting of 4. There appeared to be good fragmentation of the stone. The patient tolerated the procedure well and was taken to the recovery room in good condition. Packing No Pathology None sent Complications No immediate complications Condition Stable
--- NOTE | 2023-07-07 09:16 | SUR.PHASEII ---
Vitals are stable. Patient is unhooked from the monitors and waiting for ride to arrive.
== END 2023-07-07 09:25 | disposition home or self-care (01) ==
PROVIDERS: PCP Family Medicine Adolescent Medicine; Visit Provider Urology
PROC: (CPT 50590; principal; 2023-07-07 07:30)
DX: N20.0 Calculus of kidney (principal); F98.8 Other specified behavioral and emotional disorders with onset usually occurring in childhood and adolescence; F41.9 Anxiety disorder, unspecified; F17.210 Nicotine dependence, cigarettes, uncomplicated; F12.90 Cannabis use, unspecified, uncomplicated
CPT/HCPCS: 50590; 36415; 74018; 85610; 85730; 87086; J0690; J1100; J2250; J2405; J2704; J3010; J7120

== ENCOUNTER 2023-07-24 10:12 | Outpatient (CLI) | payer OTHER, SELFPAY ==
--- NOTE | ~2023-07-24 | XR_ITS ---
EXAMINATION: XR abdomen/kub 1V DATE: 07/24/2023 10:34 INDICATION: Calcium kidney stone. TECHNIQUE: A supine view of the abdomen on 2 radiographs was obtained. COMPARISON: Abdomen radiographs 07/07/2023 FINDINGS: There are no dilated loops of bowel. There are phleboliths in the pelvis. There are 4 stone s in right kidney measuring up to 5 mm. There is a 2 mm stone in left kidney. IMPRESSION: 1. Bilateral kidney stones. Reviewed, dictated and finalized at location E. PATIONAL THERAPY ASSIST IMPRESSION: 1. Bilateral kidney stones.
== END 2023-07-24 10:13 | disposition home or self-care (01) ==
PROVIDERS: PCP Family Medicine Adolescent Medicine; Visit Provider Urology
DX: N20.0 Calculus of kidney (principal)
CPT/HCPCS: 74018

== ENCOUNTER 2024-01-26 10:13 | Outpatient (CLI) | payer OTHER, SELFPAY ==
--- NOTE | ~2024-01-26 | MR_ITS ---
MRI of the left knee Clinical history: Pain Technique: Coronal proton density and proton density-weighted images, sagittal proton-density and T2 fat-sat images, and axial proton-density fat-saturated images were acquired. Findings: Anterior and posterior cruciate ligaments are intact. Medial collateral ligament and the la teral collateral ligament complex are intact. Popliteus tendon is intact. There is undersurface flap tear of the posterior horn of the medial meniscus. No lateral meniscal tea r seen. There is mild diffuse chondral thinning of the medial compartment. Articular cartilage in the lateral patellofemoral compartments is well preserved. Extensor mechanism is intact. Minimal joint effusion present. No significant Dunbar's cyst. There is a probable ganglion cyst arising from the proximal tibiofibular joint. Impression: Undersurface flap tear of the posterior horn of the medial meniscus. Mild diffuse chondral thinning of the medial compartment. Ganglion cyst arising from the proximal tibiofibular joint. Reviewed, dictated and finalized at [facility]. Impression: Undersurface flap tear of the posterior horn of the medial meniscus. Mild diffuse chondral thinning of the medial compartment. Ganglion cyst arising from the proximal tibiofibular joint.
== END 2024-01-26 10:14 ==
PROVIDERS: PCP Family Medicine Adolescent Medicine; Visit Provider Family Medicine Adolescent Medicine
DX: S89.92XA Unspecified injury of left lower leg, initial encounter (principal); M25.562 Pain in left knee; S83.242A Other tear of medial meniscus, current injury, left knee, initial encounter; M67.462 Ganglion, left knee
CPT/HCPCS: 73721

== ENCOUNTER 2024-02-23 11:35 | Outpatient (CLI) | payer OTHER, SELFPAY | END 2024-02-23 11:36 | disposition home or self-care (01) | LOC: ANHLAB 11:36 | PROVIDERS: PCP Family Medicine Adolescent Medicine; Visit Provider Orthopaedic Surgery | DX: M25.562 Pain in left knee (principal) | CPT/HCPCS: 87081 ==

== ENCOUNTER 2024-02-29 01:38 | Day surgery (SDC) | payer OTHER, SELFPAY ==
[2024-02-23 16:03] VITALS: BMI 21.4
--- NOTE | 2024-02-23 16:10 | PC.NURSE ---
Report to the Outpatient Waiting Room, entrance under the green pavilion located off [facility], at time _1130_ on date _[id number]_. Planned Procedure Time: _130pm_. Time changes happen often and if your time is changed the preop area will call you the afternoon before. - You and your visitor will be asked to self-screen and do not enter if you have any COVID symptoms. - A mask is optional within the hospital at this time. Patients may have clear liquids (water, carbonated beverages, clear teas, apple juice) until 3 hours prior to surgery with a maximum of 20 ounces. - No food from midnight until time of surgery Take the following medications with a SIP of water the morning of surgery: ___Alprazolam DO NOT STOP ANY OF YOUR OTHER PRESCRIPTION MEDICATIONS PRIOR TO SURGERY ?EXCEPT THE FOLLOWING Medications to discontinue per physician ____None Date to take last dose Please no make-up, nail emirati, hairspray, perfume, deodorant, or body powder the day of surgery. No jewelry (including any body piercings) or valuables the day of surgery, leave them at home. Please take a shower or bath the night before, or the morning of, surgery with an antibacterial soap. Wear comfortable, loose fitting clothing. - Jewelry must be removed prior to entering the operating room. Rings and piercings that are not removed may be cut off. - The hospital will not accept responsibility for valuables. - Please leave all valuables, including medications, at home the day of surgery. If you are going home after surgery, a licensed commercial truck driver must drive you home. - NO public transportation without another adult if you receive anesthesia. - We recommend that an adult stay with you for 24 hours following discharge. - We also recommend that you do not drive, make important decision, drink alcoholic beverages, or take any drugs that were not prescribed by your health care provider for at least 24 hours after your discharge time. Follow any additional instructions given to you from your surgeon. If you or anyone in your household have experienced Covid symptoms in the past week, please notify your surgeon or the nurse liaison at the phone number below for possible testing. Telephone instructions given to __Michael___and asked if any additional questions and then verbalized understanding. Patient advised to call surgeon office or pre surgery nurse liaison [phone] if any additional questions.
--- NOTE | 2024-02-28 13:14 | PM.IMHP ---
H&P: HPI History of Present Illness Date/Time: 02/28/24 13:14 Chief Complaint: Medial meniscus tear left knee Narrative: 53-year-old male who presents today for arthroscopy left knee. He injured his knee in December this year when he stepped out of the shower with for slipped and fell. He had immediate pain in the knee. Pain is over the medial aspect the knee. Prior to his fall he was having no problems with the knee. He has pain with weight-bearing especially if he twists on. He has been taking ibuprofen 800 mg 3 times a day and has modified his activities but he has continued symptoms in the knee. He had MRI scan done on January 25 of this year. Showed a complex tear of the posterior horn of the medial meniscus. Patient was seen on 02/[address] Tom. MRI scan as well as x-rays were reviewed. He does have mild to moderate medial compartment osteoarthritis in the knee. And he does have a complex tear of the posterior horn medial meniscus. Patient has not improved at this point from a nonsurgical measures. Arthroscopic surgery was offered to the patient he would like to proceed with it. Review of Systems Review of Systems: All systems reviewed & are unremarkable except as noted in HPI and below PMFSH Past Medical History Medical History (Updated 02/23/24 @ 16:17 by Esa Tom MD) Acute pancreatitis ADD (attention deficit disorder) Anxiety Colon cancer screening Elevated AST (SGOT) Hypercholesterolemia Kidney stones Liver disease Pneumonia RUQ pain Umbilical hernia Surgical History Surgical History (Updated 02/23/24 @ 09:55 by Nelida Fontaine CMA) History of hand surgery History of lithotripsy History of tonsillectomy Hx of right knee surgery x3 Family History Family History Grandparent Acute myocardial infarction Other Breast cancer Mother Diabetes mellitus Hypertension Father Hypertension Social History Social History (Updated 02/23/24 @ 09:56 by Nelida Fontaine CMA) Smoking packs per day: 1 Smoking cigarettes per day: 20.0 Years smoked: 35 Smoking pack-years: 35.00 Smoking status: Current every day smoker Tobacco type: cigarettes Second hand tobacco smoke exposure: Yes Alcohol intake: current Drinks per week: 2 Alcohol use details: Pt states is not currently drinking due to health issues Substance use: current Substance use type: marijuana Other substance usage details: once a month Do You Feel Safe in your Home?: Yes Lack of Transportation: No Lack of Food: Never True Current Housing: I Have Housing Concerned About Future Housing: No Difficulty Paying Gas/Electric Bills: No Difficulty Paying for Meds: No Currently Unemployed: No Education: Decline to Answer Difficulty w/ Childcare or Family Care: No Living arrangements: with family Occupation/Education: occupation 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 Gender identity (if verbalized by the patient): Male Sexual Orientation (if Verbalized by the Patient): Straight or Heterosexual Spiritual care concerns: No Agree to blood products: Yes Meds Home Medications and Allergies Home Medications Medication Instructions Recorded Confirmed Type quetiapine 50 mg tablet See Rx Instructions .Route 09/25/23 02/23/24 Rx .COMPLEX #30 tabs alprazolam 2 mg tablet 2 mg PO TID #90 tabs 01/12/24 02/23/24 Rx dextroamphetamine-amphetamine ER 60 mg PO DAILY #60 caps 02/13/24 02/23/24 Rx 30 mg 24hr capsule,extend release (Adderall XR) Allergies Allergy/AdvReac Type Severity Reaction Status Date / Time erythromycin base Allergy Unknown Other Verified 02/23/24 16:03 sertraline AdvReac Severe Depression Verified 02/23/24 16:03 Exam Narrative: 53-year-old male alert pleasant. His BMI is 21.5. Left knee range of motion is from 3-135 degrees. He has pa
[2024-02-29] VITALS (7 sets, daily range): BP systolic 120–146; BP diastolic 72–88; PULSE 62–77; RESP 14–18; TEMP 36.3–36.4; O2SAT 98–100; BMI 20.3
--- NOTE | 2024-02-29 11:50 | ECG_ITS ---
Test Date: 2024-02-29 12:06:18 Measurements Intervals [place] Rate: 69 P: 59 NV: 145 QRS: 75 QRSD: 101 T: 66 QT: 383 QTc: 411 Interpretive Statements SINUS RHYTHM No previous ECG available for comparison Electronically Signed On 02-29-2024 13:39:38 CDT by Arnel Ruiz M.D.
--- NOTE | 2024-02-29 11:55 | SUR.PREOP ---
1150- Dr. Tom to bedside to assess patient's left knee. Patient performed shave at home and caused cuts to skin on lateral side of operative knee. Per Dr. Tom after assessment of knee OK to proceed with surgery. 1155- Patient declining crutch training at this time and verbalized understanding of use. Patient brought crutches from home to use post operatively.
[2024-02-29] MEDS: LACTATED RINGERS 1,000 ML 30 ML IV CONT ×2 (12:15→14:53)
[2024-02-29] MEDS: ACETAMINOPHEN 500 MG TABLET 1000 MG PO (12:24)
[2024-02-29] MEDS: KETOROLAC 15 MG/ML VIAL (*BKC) IV PUSH (12:24)
[2024-02-29] MEDS: VANCOMYCIN 1,000 MG/NS 250 ML 1,000 MG/250 ML BAG 250 MG IVPB (13:02)
--- NOTE | 2024-02-29 13:04 | WPDHPUPDATE1 ---
History and Physical Update Update Date/Time: 02/29/24 13:04 History and Physical has been reviewed, including an updated exam of the patient. There are NO changes in the patient's condition. Risks, benefits, and alternatives have been discussed and questions answered. Patient agrees to proceed with procedure.
--- NOTE | 2024-02-29 13:25 | WPDANESEPPF ---
Anes - Initial Pre Proc Eval Procedure: Operation Date: 02/29/24 13:30 Proposed Procedures p Left Knee Arthroscopy Partial Medial Meniscectomy, Proceed As Indicated - Esa Tom MD Date/Time: 02/29/24 13:25 Surgeon: Esa Tom MD Pre Op Diagnosis: left knee medial meniscus tear Patient Data Age: 53 Gender: M Height: 1.75 m Weight: 62.6 kg Last Vital Signs Temp 36.3 C L 02/29/24 11:24 Pulse 77 02/29/24 11:24 Resp 18 02/29/24 11:24 BP 120/72 02/29/24 11:24 Pulse Ox 99 02/29/24 11:24 O2 Del Method Room Air 02/29/24 11:24 Allergies Allergy/AdvReac Type Severity Reaction Status Date / Time erythromycin base Allergy Unknown Other Verified 02/29/24 12:08 sertraline AdvReac Severe Depression Verified 02/29/24 12:08 Home Medications Medication Instructions Recorded Confirmed Type quetiapine 50 mg tablet See Rx Instructions .Route 09/25/23 02/23/24 Rx .COMPLEX #30 tabs alprazolam 2 mg tablet 2 mg PO TID #90 tabs 01/12/24 02/23/24 Rx dextroamphetamine-amphetamine ER 60 mg PO DAILY #60 caps 02/13/24 02/23/24 Rx 30 mg 24hr capsule,extend release (Adderall XR) Patient hx anesthesia problems: none Family hx anesthesia problems: none Results Review: All pre-operative results and documents have been reviewed as part of the pre-operative evaluation. [facility] Past Medical History Medical History Acute pancreatitis ADD (attention deficit disorder) Anxiety Colon cancer screening Elevated AST (SGOT) Hypercholesterolemia Kidney stones Liver disease Pneumonia RUQ pain Umbilical hernia Surgical History Surgical History History of hand surgery History of lithotripsy History of tonsillectomy Hx of right knee surgery x3 Family History Family History Grandparent Acute myocardial infarction Other Breast cancer Mother Diabetes mellitus Hypertension Father Hypertension Social History Social History Smoking packs per day: 1 Smoking cigarettes per day: 20.0 Years smoked: 35 Smoking pack-years: 35.00 Smoking status: Current every day smoker Tobacco type: cigarettes Second hand tobacco smoke exposure: Yes Alcohol intake: current Drinks per week: 2 Alcohol use details: Pt states is not currently drinking due to health issues Substance use: current Substance use type: marijuana Other substance usage details: once a month Do You Feel Safe in your Home?: Yes Lack of Transportation: No Lack of Food: Never True Current Housing: I Have Housing Concerned About Future Housing: No Difficulty Paying Gas/Electric Bills: No Difficulty Paying for Meds: No Currently Unemployed: No Education: Decline to Answer Difficulty w/ Childcare or Family Care: No Living arrangements: with family Occupation/Education: occupation 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 Gender identity (if verbalized by the patient): Male Sexual Orientation (if Verbalized by the Patient): Straight or Heterosexual Spiritual care concerns: No Agree to blood products: Yes Anes - Eval Final PreProcedure Day of Procedure 02/29/24 13:25 Patient weight: normal Heart: regular rate and rhythm Lungs: decreased breath sounds Airway: Mallampati scale class II Neurological: alert and oriented Last oral intake: >/= 8 hours ASA classification: III Emergent: no Anesthetic plan: proceed Anesthesia type and monitoring: general GIVS and standard monitoring Results Review: All pre-operative results and documents have been reviewed as part of the pre-operative evaluation. Informed Consent: The patient's anesthetic plan and its attendant risks and benefits were discussed with the patient
[2024-02-29] MEDS: ceFAZolin 2 GM/D5W 50 ML 2 GM/50 ML BAG IVPB (13:47)
[2024-02-29] MEDS: LIDO 1%/EPINEPHRINE 1:100,000 50 ML VIAL 13 ML INFILTRATE (14:13)
--- NOTE | 2024-02-29 14:59 | W.PM.PROC2 ---
Procedure Note - Detailed Date of Procedure 02/29/24 Pre-op Diagnosis left knee medial meniscus tear Post-op Diagnosis Same Procedure Performed Arthroscopic partial medial meniscectomy left knee Surgeon Esa Tom MD Javascript Front End Developer [employer] Anesthesia General Description of Procedure Patient was brought to the operating room and general anesthesia was administered. He received 2 g Ancef weight based vancomycin preoperatively. Patient's history of MRSA infection. The left knee was prepped draped usual fashion. The joint itself was injected with 10 cc of 1% lidocaine with epinephrine for analgesia and bleeding reduction and the portal sites with 3 more cc of 1% lidocaine with epinephrine. Standard arthroscopic portals were placed. We did not elevate the tourniquet during the procedure. Viewing the medial compartment we found a very complex tear the posterior horn of the medial meniscus with flaps based at the midbody and also at the root with a larger thick flap of tissue based at the root. The 3.5 shaver was placed through the anteromedial portal and used to resect the softer tissue. A small punch was used to resect the thick flap based at the root. This was done carefully as his articular surfaces were intact and the knee was a little tight. His medial compartment otherwise looked perfectly normal. With the posterior horn and root transition completed, we inspected the ACL and PCL which were normal. The arthroscope was placed into the anteromedial portal and the lateral compartment was viewed and normal. The shaver was then introduced through the anterolateral portal and the midbody was conservatively resected to create a smooth transition between the resection of the posterior horn and midbody. The arthroscope was then placed back in the anterolateral portal up through the patellofemoral joint. The cartilage in the patella and the trochlea was also perfectly normal. Finally we reviewed view the medial compartment from the anterolateral portal showing the smooth transition of the mid body resection. This completed the procedure. The portals were closed with 4-0 nylon suture soft bulky dressing applied and he was transferred to postoperative recovery in good condition. [facility] Billing Surgery - Charge Forward: Surgery Billing (Arthroscopic partial medial meniscectomy left knee)
== END 2024-02-29 16:25 | disposition home or self-care (01) ==
PROVIDERS: PCP Family Medicine Adolescent Medicine; Visit Provider Orthopaedic Surgery
PROC: (CPT 29870; principal; 2024-02-29 13:30)
DX: S83.232A Complex tear of medial meniscus, current injury, left knee, initial encounter (principal); W01.0XXA Fall on same level from slipping, tripping and stumbling without subsequent striking against object, initial encounter; F17.210 Nicotine dependence, cigarettes, uncomplicated; F12.90 Cannabis use, unspecified, uncomplicated; F98.8 Other specified behavioral and emotional disorders with onset usually occurring in childhood and adolescence
CPT/HCPCS: 29881; 93005; A9270; J0690; J1100; J1885; J2250; J2405; J2704; J3010; J3370; J7120

== ENCOUNTER 2024-12-22 05:04 | Emergency (ER) | payer OTHER, SELFPAY ==
--- NOTE | ~2024-12-22 | CT_ITS ---
EXAMINATION: CT abdomen pelvis w con DATE: 12/22/2024 06:16 INDICATION: Flank pain TECHNIQUE: Computed tomography (CT) of the abdomen and pelvis was performed with 100 cc Omnipaque 350 intravenous contrast. The dose-length product was 280.18 mGy-cm. Automated exposure control and iter ative reconstruction technique were employed. COMPARISON: CT dated 05/22/2023. FINDINGS: Dependent atelectasis in the lung bases. Heart size normal. Small hiatal hernia. No signifi cant pleural or pericardial effusion. The liver, spleen, pancreas, adrenal glands and kidneys are unr emarkable. Gallbladder is present. Small fat-containing umbilical hernia. Nonobstructive bowel gas pa ttern. There is mild atherosclerosis of the aorta. No aneurysm. There are nonobstructing bilateral re nal stones. There are small low-density lesions in both kidneys, most likely benign cysts. No hydrone phrosis. No ureteral stones identified. Gallbladder mildly distended. No abnormal pelvic masses or fl uid collections. No lymphadenopathy. Moderate lumbar spondylosis with dextroscoliosis. IMPRESSION: 1. Nonobstructing bilateral nephrolithiasis. Reviewed, dictated and finalized at location A.
[2024-12-22 05:13] VITALS: BP 144/96; PULSE 76; RESP 13; TEMP 36.5; O2SAT 100
[2024-12-22 05:31] LABS: Basophils Absolute Auto 0.1 K/mm3 (0.0-0.1); Basophils Percent Auto 0.8 % (0.2-1.2); Eosinophils Absolute Auto 0.5 K/mm3 (0-0.3); Eosinophils Percent Auto 2.8 % (0-4.4); Hematocrit 48.9 % (42.0-52.0); Hemoglobin 15.5 g/dL (14.0-18.0); Immature Granulocyte Percent A 0.6 % (0-0.5); Lymphocytes Absolute Auto 4.13 K/mm3 (0.9-3.2); Lymphocytes Percent Auto 23.6 % (18.3-44.2); Mean Corpuscular HGB Conc 31.7 g/dl (32-36); Mean Corpuscular Hemoglobin 29.3 pg (26-34); Mean Corpuscular Volume 92.4 fl (80-100); Mean Platelet Volume 9.2 fl (7.4-10.4); Monocytes Absolute Auto 1.4 K/mm3 (0.1-0.6); Monocytes Percent Auto 7.8 % (2.6-8.5); Neutrophils Absolute Auto 11.3 K/mm3 (1.3-6.7); Neutrophils Percent Auto 64.4 % (45.5-73.1); Platelet Count Result 405 k/mm3 (150-375); Red Blood Count 5.29 M/mm3 (4.6-6.20); Red Cell Distribution Width 13.3 % (11.5-14.5); White Blood Count 17.5 K/mm3 (4.5-10.0)
[2024-12-22 05:32] LABS: Add Urine Microscopic? NO; Appearance Urine Clear (Clear); Bilirubin Urine Negative (Negative); Blood Urine Negative (Negative); Color Urine Yellow (Yellow); Glucose Urine UA Negative (Negative); Ketones Urine Negative (Negative); Leukocyte Esterase Ur Negative LEU/UL (Negative); Nitrate Urine Negative (Negative); Protein Urine Negative (Negative); Specific Grav Ur 1.021 (1.001-1.035); Urobilinogen Urine 0.2 mg/dL (<2.0); pH Urine 5.5 (5.0-9.0)
[2024-12-22 05:58] LABS: Alanine Aminotransferase 23 U/L (6-50); Albumin Level 4.3 g/dL (3.5-5.1); Alkaline Phosphatase 89 U/L (38-126); Anion Gap 10 mmol/L (4-12); Aspartate Amino Transferase 74 U/L (17-59); Bilirubin,Total 0.3 mg/dL (0.2-1.3); Blood Urea Nitrogen 11 mg/dL (9-20); Calcium 9.3 mg/dL (8.4-10.2); Carbon Dioxide 24 mmol/L (22-30); Chloride 106 mmol/L (98-107); Estimated CRCL calculation 85 ml/min; Estimated Glomerular Filt Rate > 60; Glucose 95 mg/dL (65-110); Potassium 4.1 mmol/L (3.4-5.0); Sodium 140 mmol/L (137-145)
[2024-12-22 06:05] LABS: Lipase 2798 U/L (23-300)
[2024-12-22] MEDS: MORPHINE SULFATE (*CRX) 4 MG/ML INJ IV PUSH (06:22)
[2024-12-22] MEDS: SODIUM CHLORIDE 0.9% IV 1,000 ML 999 ML IV CONT (06:22)
[2024-12-22] MEDS: ONDANSETRON INJ 4 MG/2 ML VIAL IV PUSH (06:23)
--- NOTE | 2024-12-22 06:59 | ED_ITS ---
HPI - General Adult General Chief complaint: Urogenital-Male Stated complaint: flank pain Time Seen by Provider: 12/22/24 06:53 History of Present Illness HPI narrative: Patient is a 54-year-old male who presents to the emergency department this evening complaining of right-sided flank pain. States that he has a history of kidney stones and thought that this might be was causing his symptoms. Patient also states that he was doing some strenuous work and feels as though he may have pulled muscle. Denies any recent illness, fevers or chills, nausea vomit or abdominal pain. Patient denies any hematuria or dysuria. No additional symptoms or concerns at this time. Related Data Allergies Allergy/AdvReac Type Severity Reaction Status Date / Time erythromycin base Allergy Unknown Other Verified 12/22/24 05:05 sertraline AdvReac Severe Depression Verified 12/22/24 05:05 Review of Systems 2 Review of Systems: All systems are reviewed and are negative unless stated otherwise in the HPI. [facility] Past Medical History Medical History Umbilical hernia Acute pancreatitis Colon cancer screening Elevated AST (SGOT) RUQ pain Anxiety ADD (attention deficit disorder) Liver disease Kidney stones Pneumonia Hypercholesterolemia Surgical History Surgical History History of arthroscopy of left knee (02/2024) Partial medial meniscectomy History of hand surgery History of lithotripsy Hx of right knee surgery x3 History of tonsillectomy Family History Family History Grandparent Acute myocardial infarction Other Breast cancer Mother Diabetes mellitus Hypertension Father Hypertension Social History Social History Smoking packs per day: 1 Smoking cigarettes per day: 20.0 Years smoked: 35 Smoking pack-years: 35.00 Smoking status: Current every day smoker Tobacco type: cigarettes Second hand tobacco smoke exposure: Yes Alcohol intake: current Drinks per week: 2 Alcohol use details: Pt states is not currently drinking due to health issues Substance use: current Substance use type: marijuana Other substance usage details: once a month Do You Feel Safe in your Home?: Yes Lack of Transportation: No Lack of Food: Never True Current Housing: I Have Housing Concerned About Future Housing: No Difficulty Paying Gas/Electric Bills: No Difficulty Paying for Meds: No Currently Unemployed: No Education: Decline to Answer Difficulty w/ Childcare or Family Care: No Living arrangements: with family Occupation/Education: occupation 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 HEENT: PERRL, no rhinorrhea, no post nasal drip, oropharynx clear. Neck: Trachea midline, no JVD, no lymphadenopathy. Cardiovascular: Regular rate and rhythm, no murmurs, rubs or gallops, no peripheral edema. Respiratory: Clear to auscultation bilaterally, no tachypnea, no wheezing, no rhonchi, no rubs, no respiratory distress. Abdomen: Soft, nontender, nondistended, no rebound, no guarding, no peritoneal signs. Musculoskeletal: No joint swelling or deformity, normal muscle tone. Skin: No rashes or petechia, no signs of infection. Psychiatric: Alert and oriented, normal behavior and judgment for situation. Neurological: Alert and oriented to person, place, and time. Follows all commands. No focal deficits, speech is clear and fluent. Course Vital Signs Vital signs: Vital Signs Temperature 97.7 F 12/22/24 05:13 Pulse Rate 76 12/22/24 05:13 Respiratory Rate 13 12/22/24 05:13 Blood Pressure 144/96 H 12/22/24 05:13 Pulse Oximetry 100 12/22/24 05:13 Oxygen Delivery Room Air 12/22/24 05:13 Temperature 97.7 F 12/22/24 05:13 Pulse Rate 69 12/22/24 07:17 Respiratory Rate 19 12/22/24 07:17 Blood Pressure 135/81 12/22/24 07:17 Pulse Oximetry 100 12/22/24 07:17 Oxygen Delivery Room Air 12/22/24 05:13 Medical Decision Making MDM Narrative Medical decision making narrative: The patient was evaluated by myself in the emergency department. History is obtained from patient who is an independent historian and physical exam was performed. External medical records were reviewed at this time. IV was established and pertinent tests were ordered. Patient was administered 4 mg IV morphine, 15 mg IV Toradol and 4 mg IV Zofran and 1 L IV fluid bolus with normal saline. Laboratory results obtained revealing a leukocytosis of 17.5, lipase of 2798. Patient admits that he has had pancreatitis in the past, but currently denies any epigastric or left upper quadrant abdominal pain. States that this does not feel like his previous pancreatitis episodes. Urinalysis unremarkable. Imaging studies obtained included CT abdomen pelvis with IV contrast which was independently interpreted by me revealing: IMPRESSION: 1. Nonobstructing bilateral nephrolithiasis. Differential diagnosis considerations include acute pancreatitis, nephrolithiasis, appendicitis, musculoskeletal strain. Comorbidities impacting this visit include history of pancreatitis and kidney stones. I have evaluated and discussed social determinants of health with the patient that could potentially impact subsequent diagnosis and treatment plans. On repeat assessment of the patient, reevaluation revealed that the patient is doing well and is in no acute distress. Patient symptoms have improved since he arrived to our emergency department. Actively denying any pain, nausea or vomiting. Repeat vital signs were all reviewed and noted to be stable. Differential diagnosis and treatment plan were discussed with the patient at bedside. Patient agrees with discussion and after shared medical decision making agrees with discharge. All questions were answered to the patient's satisfaction. Patient will follow up with his PCP in 3-5 days. Patient was provided with strict return precautions and instructed to return to the emergency department if any new or worsening symptoms develop. The patient was discharged in stable condition. Vital Signs Vital Signs: Vital Signs Temperature 97.7 F 12/22/24 05:13 Pulse Rate 76 12/22/24 05:13 Respiratory Rate 13 12/22/24 05:13 Blood Pressure 144/96 H 12/22/24 05:13 Pulse Oximetry 100 12/22/24 05:13 Oxygen Delivery Room Air 12/22/24 05:13 Temperature 97.7 F 12/22/24 05:13 Pulse Rate 69 12/22/24 07:17 Respiratory Rate 19 12/22/24 07:17 Blood Pressure 135/81 12/22/24 07:17 Pulse Oximetry 100 12/22/24 07:17 Oxygen Delivery Room Air 12/22/24 05:13 Lab Data 12/22/24 05:16 12/22/24 05:16 Labs: Lab Results 12/22/24 Range/Units 05:16 WBC 17.5 H (4.5-10.0) K/mm3 RBC 5.29 (4.6-6.20) M/mm3 Hgb 15.5 (14.0-18.0) g/dL Hct 48.9 (42.0-52.0) % MCV 92.4 (80-100) fl MCH 29.3 (26-34) pg MCHC 31.7 L (32-36) g/dl RDW 13.3 (11.5-14.5) % Plt Count 405 H (150-375) k/mm3 MPV 9.2 (7.4-10.4) fl Immature Gran % (Auto) 0.6 H (0-0.5) % Neut % (Auto) 64.4 (45.5-73.1) % Lymph % (Auto) 23.6 (18.3-44.2) % [place] % (Auto) 7.8 (2.6-8.5) % Eos % (Auto) 2.8 (0-4.4) % Baso % (Auto) 0.8 (0.2-1.2) % Lymph # (Auto) 4.13 H (0.9-3.2) K/mm3 [place] # (Auto) 1.4 H (0.1-0.6) K/mm3 Eos # (Auto) 0.5 H (0-0.3) K/mm3 Baso # (Auto) 0.1 (0.0-0.1) K/mm3 Abs Immat Gran (auto) 0.10 H (0.00-0.031) K/mm3 Absolute Neuts (auto) 11.3 H (1.3-6.7) K/mm3 Absolute Nucleated RBC 0.000 (0.0-0.012) K/mm3 Nucleated RBC % 0.0 (0.0-0.2) % Sodium 140 (137-145) mmol/L Potassium 4.1 (3.4-5.0) mmol/L Chloride 106 (98-107) mmol/L Carbon Dioxide 24 (22-30) mmol/L Anion Gap 10 (4-12) mmol/L BUN 11 (9-20) mg/dL Creatinine 0.86 (0.7-1.3) mg/dL Estim Creat Clear Calc 85 ml/min Estimated GFR > 60 (59 - ) Glucose 95 (65-110) mg/dL Calcium 9.3 (8.4-10.2) mg/dL Total Bilirubin 0.3 (0.2-1.3) mg/dL AST 74 H (17-59) U/L ALT 23 (6-50) U/L Alkaline Phosphatase 89 (38-126) U/L Total Protein 7.0 (6.3-8.2) g/dL Albumin 4.3 (3.5-5.1) g/dL Lipase 2798 H (23-300) U/L Urine Color Yellow (Yellow) Urine Appearance Clear (Clear) Urine pH 5.5 (5.0-9.0) Ur Specific [place] 1.021 (1.001-1.035) Urine Protein Negative (Negative) mg/dL Urine Glucose (UA) Negative (Negative) mg/dL Urine Ketones Negative (Negative) mg/dL Ur Blood (Man) Negative (Negative) Urine Nitrate Negative (Negative) Urine Bilirubin Negative (Negative) Urine Urobilinogen 0.2 (<2.0) mg/dL Leukocyte Esterase Rfl Negative (Negative) MARQUES/UL Discharge Plan Discharge Clinical Impression: Strain, lumbosacral, Acute right flank pain, Leukocytosis Patient Disposition: Home Condition: Improved Instructions: Antibiotic Form, Muscle Strain (DC), Flank Pain (ED) Additional Instructions: Please follow-up with your family doctor within the next 3-5 days. Return to emergency department if any new or worsening symptoms develop. Patient Language: Bulgarian Prescriptions: No Action quetiapine 100 mg tablet 100 mg PO QHS Qty: 90 3RF lisdexamfetamine [Vyvanse] 60 mg capsule 60 mg PO DAILY Qty: 30 0RF dextroamphetamine-amphetamine [Adderall XR] 30 mg capsule,extended release 24hr 60 mg PO DAILY Qty: 60 0RF alprazolam 2 mg tablet 2 mg PO TID Qty: 90 4RF Follow-up/Referrals: Jake Nelson MD [Primary Care Provider] - 3 Days Time of Disposition: 07:07
[2024-12-22 07:17] VITALS: BP 135/81; PULSE 69; RESP 19; O2SAT 100
[2024-12-22] MEDS: KETOROLAC 15 MG/ML VIAL (*BKC) IM (07:19)
== END 2024-12-22 07:27 | disposition home or self-care (01) ==
LOC: ANHED 07:12
PROVIDERS: Emergency Provider Emergency Medicine; PCP Family Medicine Adolescent Medicine
DX: S39.012A Strain of muscle, fascia and tendon of lower back, initial encounter (principal); D72.829 Elevated white blood cell count, unspecified; E78.00 Pure hypercholesterolemia, unspecified; K76.9 Liver disease, unspecified; F98.8 Other specified behavioral and emotional disorders with onset usually occurring in childhood and adolescence; F41.9 Anxiety disorder, unspecified; F17.210 Nicotine dependence, cigarettes, uncomplicated; N20.0 Calculus of kidney; Z87.442 Personal history of urinary calculi; Z79.899 Other long term (current) drug therapy; X50.0XXA Overexertion from strenuous movement or load, initial encounter
CPT/HCPCS: 36415; 74177; 80053; 81003; 83690; 85025; 96361; 96372; 96374; 96375; 99284; J1885; J2270; J2405; J7030; Q9967

== ENCOUNTER 2024-12-23 11:38 | Outpatient (CLI) | payer OTHER, SELFPAY ==
--- NOTE | ~2024-12-23 | XR_ITS ---
CHEST RADIOGRAPH, PA AND LATERAL CLINICAL HISTORY: COUGH/SOB/RT LOWER CP/ELEVATED WBC . COMPARISON: 05/12/2021 TECHNIQUE: PA and lateral views of the chest. FINDINGS The cardiomediastinal silhouette is unremarkable. Blunting of the bilateral costophrenic sulci are identified for which bibasilar atelectasis is suspec cherie. The remainder of the lungs are clear. IMPRESSION: Bibasilar atelectasis, without focal infiltrate or effusion. Reviewed, dictated and finalized at location A.
[2024-12-23 12:18] LABS: Basophils Absolute Auto 0.1 K/mm3 (0.0-0.1); Basophils Percent Auto 0.8 % (0.2-1.2); Eosinophils Absolute Auto 0.2 K/mm3 (0-0.3); Hematocrit 46.7 % (42.0-52.0); Hemoglobin 15.2 g/dL (14.0-18.0); Immature Granulocyte Percent A 0.6 % (0-0.5); Lymphocytes Absolute Auto 2.71 K/mm3 (0.9-3.2); Lymphocytes Percent Auto 17.3 % (18.3-44.2); Mean Corpuscular HGB Conc 32.5 g/dl (32-36); Mean Corpuscular Hemoglobin 29.1 pg (26-34); Mean Corpuscular Volume 89.5 fl (80-100); Mean Platelet Volume 9.1 fl (7.4-10.4); Monocytes Absolute Auto 1.1 K/mm3 (0.1-0.6); Monocytes Percent Auto 7.1 % (2.6-8.5); Neutrophils Absolute Auto 11.5 K/mm3 (1.3-6.7); Neutrophils Percent Auto 73.2 % (45.5-73.1); Platelet Count Result 406 k/mm3 (150-375); Red Blood Count 5.22 M/mm3 (4.6-6.20); Red Cell Distribution Width 13.2 % (11.5-14.5); White Blood Count 15.7 K/mm3 (4.5-10.0)
[2024-12-23 12:26] LABS: Potassium 4.5 mmol/L (3.4-5.0)
[2024-12-23 12:30] LABS: Alanine Aminotransferase 25 U/L (6-50); Albumin Level 4.4 g/dL (3.5-5.1); Alkaline Phosphatase 92 U/L (38-126); Anion Gap 9 mmol/L (4-12); Aspartate Amino Transferase 69 U/L (17-59); Bilirubin,Total 0.4 mg/dL (0.2-1.3); Blood Urea Nitrogen 9 mg/dL (9-20); Calcium 9.5 mg/dL (8.4-10.2); Carbon Dioxide 28 mmol/L (22-30); Chloride 104 mmol/L (98-107); Estimated Glomerular Filt Rate > 60; Glucose 92 mg/dL (65-110); Lipase 1921 U/L (23-300); Sodium 141 mmol/L (137-145)
== END 2024-12-23 11:39 | disposition home or self-care (01) ==
PROVIDERS: PCP Family Medicine Adolescent Medicine; Visit Provider Nurse Practitioner Family
DX: R05.9 Cough, unspecified (principal); D72.829 Elevated white blood cell count, unspecified; R10.9 Unspecified abdominal pain; J98.11 Atelectasis
CPT/HCPCS: 36415; 71046; 80053; 83690; 85025

== ENCOUNTER 2025-04-14 09:37 | Emergency (ER) | payer OTHER, SELFPAY ==
[2025-04-14] VITALS (15 sets, daily range): BP systolic 131–160; BP diastolic 83–100; PULSE 61–91; RESP 12–20; TEMP 36.4; O2SAT 97–100
--- NOTE | ~2025-04-14 | CT_ITS ---
EXAMINATION: CTA chest PE abdomen pel DATE: 04/14/2025 11:29 CDT INDICATION: Pleuritic chest pain. Elevated lipase. TECHNIQUE: Computed tomographic angiography (CTA) of the chest, abdomen, and pelvis was performed wit hout and with 100 mL Omnipaque-350 intravenous contrast. The dose-length product was 555.46 mGy-cm. M aximum intensity projection 3D-reconstructions of the aorta and other arteries were constructed by maxine thomas technologist on a separate workstation. COMPARISON: CT dated 12/22/2024. FINDINGS: CHEST CTA: Study is technically adequate without evidence for pulmonary embolism. Heart size normal. There is em physema. No endobronchial lesions. No focal pneumonia. No pneumothorax. No thoracic lymphadenopathy. No evidence for aortic aneurysm or dissection. ABDOMEN AND PELVIS CTA: The liver, spleen, pancreas, adrenal glands are unremarkable. There are bilateral renal cysts. Gallbl adder is present. There are punctate bilateral renal stones. There is atherosclerosis of the aorta wi thout evidence for aneurysm. Small fat-containing umbilical hernia. No abnormal pelvic masses or flui d collections. Mild diffuse thickening of the transverse, descending and sigmoid colon as well as the rectum, suspicious for colitis, most likely infectious or inflammatory. Moderate lumbar spondylosis. IMPRESSION: 1. No acute cardiopulmonary disease. 2: Diffuse abnormal thickening of the colon, suspicious for colitis, most likely infectious or inflam matory. Reviewed, dictated and finalized at location A. IMPRESSION: 1. No acute cardiopulmonary disease. 2: Diffuse abnormal thickening of the colon, suspicious for colitis, most likel y infectious or inflammatory.
--- NOTE | ~2025-04-14 | XR_ITS ---
EXAMINATION: XR chest 2V 04/14/2025 10:31 INDICATION: Chest pain PROCEDURE: 2 view chest COMPARISON: Comparison to multiple prior studies sequentially, with oldest reviewed study dated 10/19. FINDINGS: The lungs are clear. The cardiomediastinal silhouette is within normal limits. There are no pleural effusions. There is no pneumothorax suspected. IMPRESSION: 1: NO ACUTE CARDIOPULMONARY DISEASE. Reviewed, dictated and finalized at location A.
--- NOTE | 2025-04-14 09:38 | ECG_ITS ---
Test Date: 2025-04-14 09:45:59 Measurements Intervals [place] Rate: 68 P: 58 IA: 125 QRS: 80 QRSD: 110 T: 76 QT: 372 QTc: 397 Interpretive Statements SINUS RHYTHM MINIMAL Q WAVES- ANTEROLAT/INF LEADS BASELINE WANDER- I, III, V6 BORDERLINE ECG Compared to ECG 02/29/2024 12:06:18 No significant changes Electronically Signed On 04-14-2025 09:59:07 CDT by Trever Baugh D.O.
[2025-04-14 10:00] LABS: Hematocrit 51.8 % (42.0-52.0); Hemoglobin 17.6 g/dL (14.0-18.0); Immature Granulocyte Percent A 0.5 % (0-0.5); Lymphocytes Absolute Auto 2.94 K/mm3 (0.9-3.2); Mean Corpuscular HGB Conc 34.0 g/dl (32-36); Mean Corpuscular Hemoglobin 29.4 pg (26-34); Mean Corpuscular Volume 86.5 fl (80-100); Nucleated Red Blood Cells Absolute Auto 0.000 K/mm3 (0.0-0.012); Nucleated Red Blood Cells Perc 0.0 % (0.0-0.2); Platelet Count Result 439 k/mm3 (150-375); Red Blood Count 5.99 M/mm3 (4.6-6.20); White Blood Count 14.3 K/mm3 (4.5-10.0)
[2025-04-14] MEDS: ASPIRIN 81 MG CHEWABLE TABLET 324 MG PO (10:01)
[2025-04-14 10:13] LABS: INR 0.9; Prothrombin Time 12.8 Seconds (11.1-14.7)
[2025-04-14 10:14] LABS: Partial Thromboplastin Time 24.7 Seconds (22.3-36.8)
[2025-04-14 10:20] LABS: Alanine Aminotransferase 123 U/L (6-50); Albumin Level 4.7 g/dL (3.5-5.1); Alkaline Phosphatase 98 U/L (38-126); Anion Gap 11 mmol/L (4-12); Aspartate Amino Transferase 123 U/L (17-59); Bilirubin,Total 0.4 mg/dL (0.2-1.3); Blood Urea Nitrogen 10 mg/dL (9-20); Calcium 10.2 mg/dL (8.4-10.2); Carbon Dioxide 19 mmol/L (22-30); Chloride 107 mmol/L (98-107); Estimated CRCL calculation 94 ml/min; Estimated Glomerular Filt Rate > 60; Glucose 125 mg/dL (65-110); Lipase 1217 U/L (23-300); Potassium 4.0 mmol/L (3.4-5.0); Sodium 137 mmol/L (137-145); Total Protein 8.1 g/dL (6.3-8.2)
[2025-04-14 10:30] LABS: Troponin I < 0.012 ng/mL (0.000-0.034)
--- NOTE | 2025-04-14 10:59 | ED_ITS ---
HPI - General Adult General Chief complaint: Chest Pain Stated complaint: chest pain Time Seen by Provider: 04/14/25 10:04 History of Present Illness HPI narrative: Patient 54-year-old gentleman presents emergency department with chief complaint of chest pain. Patient reports better hour half ago started pressure in sharp sensations chest patient does report that he has history of anxiety reports that is currently resolved at this time patient also lately and has had some shortness of breath exertion Related Data Allergies Allergy/AdvReac Type Severity Reaction Status Date / Time erythromycin base Allergy Unknown Other Verified 04/14/25 09:51 sertraline AdvReac Severe Depression Verified 04/14/25 09:51 Review of Systems 2 Review of Systems: A 10 system review of systems was completed on the patient and is negative except for what is stated in the HPI. Nursing and ancillary documentation was reviewed. [facility] Past Medical History Medical History BMI 22.0-22.9, adult Umbilical hernia Acute pancreatitis (03/2023) Colon cancer screening Elevated AST (SGOT) RUQ pain Anxiety ADD (attention deficit disorder) Liver disease Kidney stones Pneumonia Hypercholesterolemia Surgical History Surgical History History of arthroscopy of left knee (02/2024) Partial medial meniscectomy History of hand surgery History of lithotripsy Hx of right knee surgery x3 History of tonsillectomy Family History Family History Grandparent Acute myocardial infarction Other Breast cancer Mother Diabetes mellitus Hypertension Father Hypertension Social History Social History Smoking packs per day: 1 Smoking cigarettes per day: 20.0 Years smoked: 35 Smoking pack-years: 35.00 Smoking status: Current every day smoker Tobacco type: cigarettes Second hand tobacco smoke exposure: Yes Alcohol intake: current Drinks per week: 2 Alcohol use details: Pt states is not currently drinking due to health issues Substance use: current Substance use type: marijuana Other substance usage details: once a month Do You Feel Safe in your Home?: Yes Lack of Transportation: No Lack of Food: Never True Current Housing: I Have Housing Concerned About Future Housing: No Difficulty Paying Gas/Electric Bills: No Difficulty Paying for Meds: No Currently Unemployed: No Education: Decline to Answer Difficulty w/ Childcare or Family Care: No Living arrangements: alone Occupation/Education: occupation 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 HEAD: Normocephalic, atraumatic. EYES: PERRLA and EOMI. ENT: Nares clear, no rhinorrhea or epistaxis. Mucous membranes moist. NECK: Supple. CHEST: Clear to auscultation. No respiratory distress. HEART: Regular rate and rhythm. No murmur heard. Normal peripheral pulses. ABDOMEN: Soft, nontender, nondistended, normal active bowel sounds. EXTREMITIES: Normal range of motion. No edema. SKIN: Warm, dry, no rash. NEURO: No focal deficits. Alert and oriented x3. PSYCH: Normal mood and affect. Course Vital Signs Vital signs: Vital Signs Temperature 36.4 C L 04/14/25 09:45 Pulse Rate 65 04/14/25 09:45 Respiratory Rate 16 04/14/25 09:45 Blood Pressure 145/94 H 04/14/25 09:45 Pulse Oximetry 99 04/14/25 09:45 Oxygen Delivery Room Air 04/14/25 09:45 Temperature 36.4 C L 04/14/25 09:45 Pulse Rate 66 04/14/25 12:03 Respiratory Rate 19 04/14/25 12:03 Blood Pressure 131/89 04/14/25 12:03 Pulse Oximetry 100 04/14/25 12:03 Oxygen Delivery Room Air 04/14/25 09:51 Medical Decision Making MDM Narrative Medical decision making narrative: Differential diagnosis includes pulmonary embolism, intra-abdominal infection, diverticulitis, colitis, pancreatitis, ACS, Laboratory studies were obtained on the patient showed white count 14.3 electrolytes showed CO2 of 19 normal renal function glucose is 125 AST and ALT were slightly elevated 123 respectively troponin was 0 hour and 3 hour lipase was elevated at 1217 the patient does report that he has had chronically elevated lipases in the past. CTA chest with an abdomen pelvis scan showed 1. No acute cardiopulmonary disease. 2: Diffuse abnormal thickening of the colon, suspicious for colitis, most likely infectious or inflammatory After discussing the results of the patient the patient did report that he has been having diarrhea Vital Signs Vital Signs: Vital Signs Temperature 36.4 C L 04/14/25 09:45 Pulse Rate 65 04/14/25 09:45 Respiratory Rate 16 04/14/25 09:45 Blood Pressure 145/94 H 04/14/25 09:45 Pulse Oximetry 99 04/14/25 09:45 Oxygen Delivery Room Air 04/14/25 09:45 Temperature 36.4 C L 04/14/25 09:45 Pulse Rate 66 04/14/25 12:03 Respiratory Rate 19 04/14/25 12:03 Blood Pressure 131/89 04/14/25 12:03 Pulse Oximetry 100 04/14/25 12:03 Oxygen Delivery Room Air 04/14/25 09:51 Lab Data 04/14/25 09:54 04/14/25 09:54 Labs: Lab Results 04/14/25 04/14/25 Range/Units 09:54 12:51 WBC 14.3 H (4.5-10.0) K/mm3 RBC 5.99 (4.6-6.20) M/mm3 Hgb 17.6 (14.0-18.0) g/dL Hct 51.8 (42.0-52.0) % MCV 86.5 (80-100) fl MCH 29.4 (26-34) pg MCHC 34.0 (32-36) g/dl RDW 13.2 (11.5-14.5) % Plt Count 439 H (150-375) k/mm3 MPV 9.0 (7.4-10.4) fl Immature Gran % (Auto) 0.5 (0-0.5) % Neut % (Auto) 68.6 (45.5-73.1) % Lymph % (Auto) 20.5 (18.3-44.2) % [place] % (Auto) 8.0 (2.6-8.5) % Eos % (Auto) 1.3 (0-4.4) % Baso % (Auto) 1.1 (0.2-1.2) % Lymph # (Auto) 2.94 (0.9-3.2) K/mm3 [place] # (Auto) 1.2 H (0.1-0.6) K/mm3 Eos # (Auto) 0.2 (0-0.3) K/mm3 Baso # (Auto) 0.2 H (0.0-0.1) K/mm3 Abs Immat Gran (auto) 0.07 H (0.00-0.031) K/mm3 Absolute Neuts (auto) 9.8 H (1.3-6.7) K/mm3 Absolute Nucleated RBC 0.000 (0.0-0.012) K/mm3 Nucleated RBC % 0.0 (0.0-0.2) % PT 12.8 (11.1-14.7) Seconds INR 0.9 APTT 24.7 (22.3-36.8) Seconds Sodium 137 (137-145) mmol/L Potassium 4.0 (3.4-5.0) mmol/L Chloride 107 (98-107) mmol/L Carbon Dioxide 19 L (22-30) mmol/L Anion Gap 11 (4-12) mmol/L BUN 10 (9-20) mg/dL Creatinine 0.70 (0.7-1.3) mg/dL Estim Creat Clear Calc 94 ml/min Estimated GFR > 60 (59 - ) Glucose 125 H (65-110) mg/dL Calcium 10.2 (8.4-10.2) mg/dL Total Bilirubin 0.4 (0.2-1.3) mg/dL AST 123 H (17-59) U/L ALT 123 H (6-50) U/L Alkaline Phosphatase 98 (38-126) U/L Troponin I < 0.012 < 0.012 (0.000-0.034) ng/mL NT-Pro-B Natriuret Pep 36 (19.9-100) pg/mL Total Protein 8.1 (6.3-8.2) g/dL Albumin 4.7 (3.5-5.1) g/dL Lipase 1217 H (23-300) U/L Discharge Plan Discharge Clinical Impression: Chest pain, Colitis, Elevated lipase Patient Disposition: Home Condition: Stable Instructions: Antibiotic Form, Chest Pain (ED), Colitis (ED) Patient Language: Turkish Prescriptions: New amoxicillin-pot clavulanate 875-125 mg tablet 1 tablet PO Q12H 10 Days Qty: 20 0RF No Action quetiapine 100 mg tablet 100 mg PO QHS Qty: 90 3RF alprazolam 1 mg tablet 1 mg PO QID Qty: 120 3RF dextroamphetamine-amphetamine [Adderall XR] 30 mg capsule,extended release 24hr 60 mg PO DAILY Qty: 60 0RF Follow-up/Referrals: Jake Nelson MD [Primary Care Provider] -
[2025-04-14 11:23] LABS: NT Pro B Type Natriuretic Pept 36 pg/mL (19.9-100)
[2025-04-14 13:22] LABS: Troponin I < 0.012 ng/mL (0.000-0.034)
== END 2025-04-14 14:10 | disposition home or self-care (01) ==
PROVIDERS: Emergency Provider Emergency Medicine; PCP Family Medicine Adolescent Medicine
DX: R07.9 Chest pain, unspecified (principal); K52.9 Noninfective gastroenteritis and colitis, unspecified; R74.8 Abnormal levels of other serum enzymes; E78.00 Pure hypercholesterolemia, unspecified; K76.9 Liver disease, unspecified; F98.8 Other specified behavioral and emotional disorders with onset usually occurring in childhood and adolescence; F41.9 Anxiety disorder, unspecified; F17.210 Nicotine dependence, cigarettes, uncomplicated; R06.02 Shortness of breath; Z87.01 Personal history of pneumonia (recurrent); Z87.442 Personal history of urinary calculi; Z79.899 Other long term (current) drug therapy; R94.31 Abnormal electrocardiogram [ECG] [EKG]
CPT/HCPCS: 36415; 71046; 71275; 74177; 80053; 83690; 83880; 84484; 85025; 85610; 85730; 93005; 99284; A9270; Q9967

== ENCOUNTER 2025-07-03 07:16 | Outpatient (CLI) | payer OTHER, SELFPAY ==
--- NOTE | ~2025-07-03 | NM_ITS ---
EXAMINATION: NM nelly stress w perfusion DATE: 07/03/2025 09:51 INDICATION: Chest pain. TECHNIQUE: Rest images were obtained following intravenous administration of 10.9 mCi Tc99m tetrofosmin (Myoview). The patient was infused intravenously with Lexiscan (regadenoson). Then, 33 mCi Tc99m tetrofosmin (Myoview) was administered intravenously, and stress images were obtained. Data was recons tructed into short axis and horizontal and vertical long axis SPECT images. Gated SPECT images were also obtained. COMPARISON: 04/14/2025 FINDINGS: There is no definite reversible or fixed perfusion abnormality to suggest ischemia or infarction. There is no segmental wall motion abnormality. Left ventricular ejection fraction measures 55%. IMPRESSION: 1. No definite ischemia or infarct. 2. Normal left ventricular ejection fraction measuring 55%. Reviewed, dictated and finalized at location E.
--- NOTE | 2025-07-03 07:48 | EST_ITS ---
Patient Info Name: Roni Rojas Age: 55 years : 1970 Gender: Male Ht: 69 in Wt: 145 lbs BSA: 1.79 m2 HR: 58 bpm BP: 117 / 69 mmHg Exam Date: 07/03/2025 7:48 AM Patient Status: O Admit Date: 07/03/2025 Exam Type: CA stress nelly w NM A regadenoson stress test was performed. Staff Referring Physician: Jake Nelson MD Attending Provider: Jake Nelson MD Exercise Technologist: Joanne Mderano Exercise Physician: Trever Baugh DO Summary 1. 1. Negative lexiscan stress test for ischemic ST changes by ECG criteria. 2. 2. Stable hemodynamics throughout the test. 3. 3. Nuclear scan to follow and will be reported separately. Please correlate with it. 4. 4. Patient informed of the above results. Protocol: Lexiscan Stress ECG Details Stage: REST Duration (min): 0 min : 59 sec HR (bpm): 60 SBP (mmHg): 117 DBP (mmHg): 69 Stage: REST Duration (min): 5 min : 13 sec HR (bpm): 67 SBP (mmHg): 117 DBP (mmHg): 69 Stage: STAGE 1 Duration (min): 1 min : 0 sec HR (bpm): 80 SBP (mmHg): 116 DBP (mmHg): 70 Stage: RECOVERY Duration (min): 1 min : 0 sec HR (bpm): 92 SBP (mmHg): 116 DBP (mmHg): 70 Stage: RECOVERY Duration (min): 2 min : 0 sec HR (bpm): 88 SBP (mmHg): 116 DBP (mmHg): 70 Stage: RECOVERY Duration (min): 3 min : 0 sec HR (bpm): 79 SBP (mmHg): 116 DBP (mmHg): 70 Stage: RECOVERY Duration (min): 4 min : 0 sec HR (bpm): 73 SBP (mmHg): 116 DBP (mmHg): 70 Stage: RECOVERY Duration (min): 5 min : 0 sec HR (bpm): 75 SBP (mmHg): 116 DBP (mmHg): 70 Stage: RECOVERY Duration (min): 5 min : 38 sec HR (bpm): 64 SBP (mmHg): 107 DBP (mmHg): 69 Rest HR: 67 bpm Peak HR: 93 bpm Rest Sys BP: 117 mmHg Peak Sys BP: 116 mmHg Max Pred HR: 164 bpm % Max Pred HR: 57 % Target HR: 139 bpm Max RPP: 10,788 bpm*mmHg Termination Reason: Completed protocol Cardiac Symptoms: Shortness of breath, Hot flashes Total Time: 1 min : 0 sec Rest [place] BP: 69 mmHg Peak [place] BP: 70 mmHg Total Dose: 0.4 mg Resting ECG Sinus rhythm. Stress ECG No ST changes. Arrhythmias None. Report Signatures
== END 2025-07-03 07:17 | disposition home or self-care (01) ==
PROVIDERS: PCP Family Medicine Adolescent Medicine; Visit Provider Family Medicine Adolescent Medicine
DX: R07.9 Chest pain, unspecified (principal)
CPT/HCPCS: 78452; 93017; A9502; J2785

== ENCOUNTER 2025-07-07 06:09 | Emergency (ER) | payer OTHER, SELFPAY ==
[2025-07-07 06:14] VITALS: BP 151/99; PULSE 105; RESP 19; TEMP 36.5; O2SAT 100
--- NOTE | 2025-07-07 07:15 | ED_ITS ---
HPI - Nausea/Vomiting/Diarrhea General Chief complaint: Nausea/Vomiting/Diarrhea Stated complaint: NECK PAIN, N/V/DIARRHEA Time Seen by Provider: 07/07/25 06:59 History of Present Illness HPI Narrative: Since Monday patient has had severe body aches especially to neck, with fevers/chills, nausea/vomiting With inability to keep anything down other than to cups of water over the course of the last 3 days, started having diarrhea this morning. No abdominal pain. 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; does have remote history of liver issues Related Data Allergies Allergy/AdvReac Type Severity Reaction Status Date / Time erythromycin base Allergy Unknown Other Verified 07/07/25 06:18 sertraline AdvReac Severe Depression Verified 07/07/25 06:18 Review of Systems 2 Review of Systems: All systems reviewed & are unremarkable except as noted in HPI and below PMFSH Past Medical History Medical History BMI 22.0-22.9, adult Umbilical hernia Acute pancreatitis (03/2023) Colon cancer screening Elevated AST (SGOT) RUQ pain Anxiety ADD (attention deficit disorder) Liver disease Kidney stones Pneumonia Hypercholesterolemia Surgical History Surgical History History of arthroscopy of left knee (02/2024) Partial medial meniscectomy History of hand surgery History of lithotripsy Hx of right knee surgery x3 History of tonsillectomy Family History Family History Grandparent Acute myocardial infarction Other Breast cancer Mother Diabetes mellitus Hypertension Father Hypertension Social History Social History Smoking packs per day: 1 Smoking cigarettes per day: 20.0 Years smoked: 35 Smoking pack-years: 35.00 Smoking status: Current every day smoker Tobacco type: cigarettes Second hand tobacco smoke exposure: Yes Alcohol intake: current Drinks per week: 2 Alcohol use details: Pt states is not currently drinking due to health issues Substance use: current Substance use type: marijuana Other substance usage details: once a month Do You Feel Safe in your Home?: Yes Lack of Transportation: No Lack of Food: Never True Current Housing: I Have Housing Concerned About Future Housing: No Difficulty Paying Gas/Electric Bills: No Difficulty Paying for Meds: No Currently Unemployed: No Education: Decline to Answer Difficulty w/ Childcare or Family Care: No Living arrangements: alone Occupation/Education: occupation 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 EYES: EOMI, conjunctiva normal ENT: Hearing grossly intact NECK: Normal range of motion side to side up and, no meningismus LUNGS: Nonlabored breathing. HEART: slightly tachycardic ABD: [Soft], [nontender to palpation] EXT: Normal range of motion SKIN: [No rashes or lesions.] NEURO: [Alert and oriented x 3. No gross focal sensory or strength deficits.] PSYCH: Normal affect Course Vital Signs Vital signs: Vital Signs Temperature 97.7 F 07/07/25 06:14 Pulse Rate 105 H 07/07/25 06:14 Respiratory Rate 19 07/07/25 06:14 Blood Pressure 151/99 H 07/07/25 06:14 Pulse Oximetry 100 07/07/25 06:14 Oxygen Delivery Room Air 07/07/25 06:14 Temperature 97.7 F 07/07/25 06:14 Pulse Rate 105 H 07/07/25 06:14 Respiratory Rate 19 07/07/25 06:14 Blood Pressure 151/99 H 07/07/25 06:14 Pulse Oximetry 100 07/07/25 06:14 Oxygen Delivery Room Air 07/07/25 06:14 MDM - Nausea/Vomiting/Diarrhea MDM Narrative Medical decision making narrative: ED COURSE AND MEDICAL DECISION MAKING: This 55 year old patient presents with symptoms most suggestive of viral syndrome with initial pain to his neck, nausea vomiting and diarrhea. No respiratory distress or accessory muscle use. neck pain has resolved and he has no meningismus on exam, normal neurologic exam. Abdomen soft nontender. Well- appearing overall other than some slight tachycardia I suspect from dehydration. Patient is treated symptomatically with Zofran, IV fluids. labs do show elevated LFTs however this appears to be baseline for him On reevaluation, he is improved and discharged home in stable condition with expectant management. Return precautions were provided. Lab Data 07/07/25 07:26 07/07/25 07:26 Labs: Lab Results 07/07/25 Range/Units 07:26 WBC 9.9 (4.5-10.0) K/mm3 RBC 5.68 (4.6-6.20) M/mm3 Hgb 16.6 (14.0-18.0) g/dL Hct 49.6 (42.0-52.0) % MCV 87.3 (80-100) fl MCH 29.2 (26-34) pg MCHC 33.5 (32-36) g/dl RDW 13.2 (11.5-14.5) % Plt Count 305 (150-375) k/mm3 MPV 9.4 (7.4-10.4) fl Immature Gran % (Auto) 0.3 (0-0.5) % Neut % (Auto) 75.6 H (45.5-73.1) % Lymph % (Auto) 13.6 L (18.3-44.2) % [place] % (Auto) 8.2 (2.6-8.5) % Eos % (Auto) 1.8 (0-4.4) % Baso % (Auto) 0.5 (0.2-1.2) % Lymph # (Auto) 1.35 (0.9-3.2) K/mm3 [place] # (Auto) 0.8 H (0.1-0.6) K/mm3 Eos # (Auto) 0.2 (0-0.3) K/mm3 Baso # (Auto) 0.1 (0.0-0.1) K/mm3 Abs Immat Gran (auto) 0.03 (0.00-0.031) K/mm3 Absolute Neuts (auto) 7.5 H (1.3-6.7) K/mm3 Absolute Nucleated RBC 0.000 (0.0-0.012) K/mm3 Nucleated RBC % 0.0 (0.0-0.2) % Sodium 137 (137-145) mmol/L Potassium 3.7 (3.4-5.0) mmol/L Chloride 106 (98-107) mmol/L Carbon Dioxide 24 (22-30) mmol/L Anion Gap 7 (4-12) mmol/L BUN 18 (9-20) mg/dL Creatinine 0.79 (0.7-1.3) mg/dL Estim Creat Clear Calc 81 ml/min Estimated GFR > 60 (59 - ) Glucose 109 (65-110) mg/dL Calcium 9.4 (8.4-10.2) mg/dL Total Bilirubin 0.4 (0.2-1.3) mg/dL AST 134 H (17-59) U/L ALT 89 H (6-50) U/L Alkaline Phosphatase 97 (38-126) U/L Total Protein 6.9 (6.3-8.2) g/dL Albumin 4.2 (3.5-5.1) g/dL Lipase 81 (23-300) U/L Discharge Plan Discharge Clinical Impression: Acute viral syndrome Patient Disposition: Home Condition: Stable Instructions: Viral Syndrome (ED) Additional Instructions: Please follow up with your doctor; you can always return for any further issues. Patient Language: Japanese Prescriptions: New ondansetron 4 mg tablet,disintegrating 4 mg PO Q8H PRN (Reason: nausea and vomiting) Qty: 10 0RF No Action quetiapine 100 mg tablet 100 mg PO QHS Qty: 90 2RF dextroamphetamine-amphetamine [Adderall XR] 30 mg capsule,extended release 24hr 60 mg PO DAILY Qty: 60 0RF lorazepam 1 mg tablet 1 mg PO QID PRN (Reason: anxiety) Qty: 120 4RF lisdexamfetamine [Vyvanse] 70 mg capsule 70 mg PO DAILY Qty: 30 0RF Follow-up/Referrals: Jake Nelson MD [Primary Care Provider, Family Practice] - 2 Days Stand Alone Forms: Work/School Release IP
[2025-07-07] MEDS: LACTATED RINGERS 1,000 ML 999 ML IV CONT (07:23)
[2025-07-07] MEDS: ONDANSETRON INJ 4 MG/2 ML VIAL IV PUSH (07:23)
[2025-07-07 07:42] LABS: Hematocrit 49.6 % (42.0-52.0); Hemoglobin 16.6 g/dL (14.0-18.0); Immature Granulocyte Percent A 0.3 % (0-0.5); Lymphocytes Absolute Auto 1.35 K/mm3 (0.9-3.2); Mean Corpuscular HGB Conc 33.5 g/dl (32-36); Mean Corpuscular Hemoglobin 29.2 pg (26-34); Mean Corpuscular Volume 87.3 fl (80-100); Nucleated Red Blood Cells Absolute Auto 0.000 K/mm3 (0.0-0.012); Nucleated Red Blood Cells Perc 0.0 % (0.0-0.2); Platelet Count Result 305 k/mm3 (150-375); Red Blood Count 5.68 M/mm3 (4.6-6.20); White Blood Count 9.9 K/mm3 (4.5-10.0)
[2025-07-07 08:03] LABS: Alanine Aminotransferase 89 U/L (6-50); Albumin Level 4.2 g/dL (3.5-5.1); Alkaline Phosphatase 97 U/L (38-126); Anion Gap 7 mmol/L (4-12); Aspartate Amino Transferase 134 U/L (17-59); Bilirubin,Total 0.4 mg/dL (0.2-1.3); Blood Urea Nitrogen 18 mg/dL (9-20); Calcium 9.4 mg/dL (8.4-10.2); Carbon Dioxide 24 mmol/L (22-30); Chloride 106 mmol/L (98-107); Estimated CRCL calculation 81 ml/min; Estimated Glomerular Filt Rate > 60; Glucose 109 mg/dL (65-110); Lipase 81 U/L (23-300); Potassium 3.7 mmol/L (3.4-5.0); Sodium 137 mmol/L (137-145); Total Protein 6.9 g/dL (6.3-8.2)
[2025-07-07 08:38] VITALS: BP 152/84; PULSE 94; RESP 20; O2SAT 99
== END 2025-07-07 08:47 | disposition home or self-care (01) ==
PROVIDERS: Emergency Provider Emergency Medicine; PCP Family Medicine Adolescent Medicine
DX: B34.9 Viral infection, unspecified (principal); F17.210 Nicotine dependence, cigarettes, uncomplicated; F41.9 Anxiety disorder, unspecified; F98.8 Other specified behavioral and emotional disorders with onset usually occurring in childhood and adolescence; E78.5 Hyperlipidemia, unspecified; Z87.442 Personal history of urinary calculi
CPT/HCPCS: 36415; 80053; 83690; 85025; 96361; 96374; 99284; J2405; J7120